=== PATIENT | female | born 1985 | race Two or more races ===

== ENCOUNTER 2016-06-13 23:04 | Emergency (ER) | payer SELFPAY ==
[~2016-06-13 23:04] MED LIST: IMPLANTED BIRTH CONT; IRON325 MG PO; LEVSINTAB PO; MOBIC7.5 PO; PAIN MED; PCET PO; ZOFRAN4 PO
[2016-06-14 01:08] LABS: BASOPHILS 1.1 %; BASOPHILS ABSOLUTE 0.05 10/3/uL (0.0-0.16); EOSINOPHILS 3.9 %; EOSINOPHILS ABSOLUTE 0.17 10/3/uL (0.0-0.53); HEMATOCRIT 27.5 % (36.0-48.0); HEMOGLOBIN 8.6 g/dL (12.0-16.0); LYMPHOCYTES 33.6 %; LYMPHOCYTES ABSOLUTE 1.48 10/3/uL (0.67-4.30); MEAN CORPUS HGB CONC 31.3 g/dL (32.0-36.0); MEAN CORPUSCULAR HEMOGLOB 22.8 pg (26.0-34.0); MEAN CORPUSCULAR VOLUME 72.8 fL (80-100); MEAN PLATELET VOLUME 8.9 fL (9.2-13.0); MONOCYTES 10.9 %; MONOCYTES ABSOLUTE 0.48 10/3/uL (0.21-1.20); NEUTROPHILS 50.5 %; NEUTROPHILS ABSOLUTE 2.22 10/3/uL (2.02-8.40); PLATELET COUNT 280 10/3/uL (150-400); RBC DISTRIBUTION WIDTH 16.7 % (12.0-16.0); RED CELL COUNT 3.78 10/6/uL (4.0-5.6)
[2016-06-14] MEDS ORDERED: PLAQ200B PO (01:08)
[2016-06-14 01:09] LABS: MANUAL DIFF NO %; WHITE BLOOD CELLS 4.4 10/3/uL (4.5-10.5)
[2016-06-14] MEDS ORDERED: CIP2 PO (01:09)
[2016-06-14] MEDS ORDERED: [UNRECOGNIZED DRUG - SUPPLY] (01:11)
[2016-06-14 01:21] LABS: BUN (BLOOD UREA NITROGEN) 12 MG/DL (6-23); CALCIUM, SERUM 7.3 MG/DL (8.5-10.4); CHLORIDE, SERUM 109 MMOL/L (96-112); CO2 (CARBON DIOXIDE) 25 MMOL/L (24-34); CREATININE 0.49 MG/DL (0.55-1.02); GFR AFRICAN AMERICAN 152 ML/MIN (>=60); GFR NON AFRICAN AMERICAN 131 ML/MIN (>=60); GLUCOSE, SERUM 75 MG/DL (60-99); POTASSIUM, SERUM 3.4 MMOL/L (3.5-5.3); SODIUM, SERUM 141 MMOL/L (135-148)
== END 2016-06-14 03:05 | disposition home or self-care (01) ==
LOC: ER 23:04
PROVIDERS: Hospitalist
DX: R51 Headache (principal); D64.9 Anemia, unspecified; Z79.899 Other long term (current) drug therapy
CPT/HCPCS: 70450; 80048; 84703; 85025; 96374; 96375; 96376; 99284; J1200; J1885; J2765

== ENCOUNTER 2016-06-20 23:00 | Inpatient (IN) | payer BC ==
--- NOTE | ~2016-06-20 | CN ---
Consultation Report [facility] [id number] [place]. [address] NAME: CELINE ROMEO : 87 STATUS : ADM IN PAT#: [id number] AGE: 31 ADM/REG DATE : 06/21/16 MR#: [id number] REPORT SERV DATE: 06/21/16 DICTATED BY: JAYCOB RUIZ DATE: 06/21/16 REPORT STATUS : Draft TRANSCRIBED BY: MODL DATE: 06/21/16 CONSULTATION REPORT DATE OF CONSULTATION: Dear Dr. Tellez: Thank you for requesting my opinion regarding evaluation and management of Ms. Celine Campbell' shortness of breath and right-sided pleurisy. Ms. Marcum is a 31-year-old Guyanese-speaking female with a history of systemic sclerosis, who presents with a history of worsening shortness of breath and right-sided chest pain. She denies any fevers, chills, night sweats, nausea, vomiting, diarrhea, or constipation. There are no significant travel exposures. CT scan of the chest demonstrated a right middle lobe pneumonia with no evidence of a PE. She did receive one dose of Lovenox as per written report in Dr. Andrae Neri's HPI. Currently, she states that she feels better, but still overall not well. As she is a limited historian due to her Guyanese speaking, I had difficulty with the yeast cake cutter as she was repeatedly requesting food tray to be sent up for her . REVIEW OF SYSTEMS: A 14-point review of systems was attempted, but could not be completed due to the language barrier and her constant focus on obtaining food for her . PAST MEDICAL HISTORY: 1. Systemic sclerosis. 2. Chronic anemia. PAST SURGICAL HISTORY: Appendectomy. FAMILY HISTORY: Noncontributory. ALLERGIES: NO KNOWN DRUG ALLERGIES. HOME MEDICATIONS: Reviewed and located in the paper chart. PHYSICAL EXAMINATION: VITAL SIGNS: Afebrile, T-current of 97, pulse of 66, respiratory rate of 18, on room air 100%, blood pressure 108/62. GENERAL: Pleasant, in no acute distress. Able to speak with a yeast cake cutter via phone and follow commands. HEENT: Normocephalic and atraumatic. Pupils are equal, round, and reactive to light and accommodation. Posterior oropharynx is clear. NECK: No JVD. No LAD. Trachea midline. CARDIOVASCULAR: Regular rate and rhythm. S1 and S2 present. LUNGS: Clear to auscultation bilaterally. Consultation Report [address] [place]. [address] NAME: CELINE ROMEO : 86 STATUS : ADM IN PAT#: [id number] AGE: 31 ADM/REG DATE : 06/21/16 MR#: [id number] REPORT SERV DATE: 06/21/16 DICTATED BY: JAYCOB RUIZ DATE: 06/21/16 REPORT STATUS : Draft TRANSCRIBED BY: ROSALINE DATE: 06/21/16 ABDOMEN: Nontender, nondistended, soft. Positive bowel sounds. EXTREMITIES: No clubbing, cyanosis, or edema. SKIN: No new rashes, lesions, or ulcers. PSYCHIATRIC: Alert and oriented x3. Appropriate mood and affect. Appropriate insight and judgment. NEUROLOGIC: 5/5 strength in upper and lower extremities. Cranial nerves were not tested. LABORATORY DATA: Normal white count, hemoglobin of 9, platelet count of 321, no significant left shift. Creatinine of 0.5. Procalcitonin is negative. IMAGING: A chest CTA performed on 06/21/2016 was personally reviewed by me and I agree with the following interpretation. No PE. Right middle lobe infiltrate. Axillary adenopathy noted. ASSESSMENT AND PLAN: Ms. Ceilne Marcum is a pleasant 31-year-old female with significant past medical history of rheumatoid arthritis, on Plaquenil, who presents to [facility] with right-sided pleurisy and shortness of breath. The patient's CT scan did not demonstrate a PE, however, confirmed the presence of community-acquired pneumonia in the right middle lobe and incidental finding including extensive axillary adenopathy with a question of potential lymphoma. A summary of my recommendations are as follows: 1. Continue antibiotic therapy for a total of seven days. The patient can be transitioned to oral therapy. 2. The patient is currently on room air oxygen p.r.n. 3. Bronchodilator therapy. 4. Consider a biopsy of the axillary lymph nodes or appropriate outpatient followup. Thank you for allowing me to participate in Ms. Marcum's care, please reconsult with questions or concerns. SAMANTHA/ROSALINE Jaycob Ruiz M.D. / [id number] CC: Sathya Cervantes MD
--- NOTE | ~2016-06-20 | CN ---
Consultation Report [facility] [address] [place]. [address] NAME: CHATO ROMEO : 87 STATUS : ADM IN [facility]#: [id number] AGE: 31 ADM/REG DATE : 06/21/16 MR#: [id number] REPORT SERV DATE: 06/24/16 DICTATED BY: HAIDER HICKS DATE: 06/23/16 REPORT STATUS : Draft TRANSCRIBED BY: MODL DATE: 06/23/16 DATE OF CONSULTATION: 06/23/2016 REASON FOR CONSULTATION: Lymphadenopathy. HISTORY: Ms Jossue Campbell is a 31-year-old lady admitted here on 06/21/2016 with right middle lobe pneumonia and some prominent right axillary lymph nodes seen on CT scan of the chest and some also mildly prominent right hilar lymph node in conjunction with pneumonia. There was no evidence of any pulmonary embolism. The patient did complain of some tenderness in the right underarm area and no breast issues with regard to pain in the breast or nipple discharge or any recent lumps. She was evaluated by Dr. Roldan, felt to have pneumonia and no need for any other intervention. She has a history of connective tissue disorder with rheumatoid arthritis/systemic sclerosis, followed by weaving instructor and treated with Plaquenil. She has a history of chronic anemia, and on this admission, has evidence of iron-deficiency anemia. She has had regular menstrual cycles and notes heavy blood loss at times. PAST MEDICAL HISTORY: Again, significant for rheumatoid arthritis/systemic sclerosis, rheumatological disorder, and chronic anemia. She had an appendectomy in April 2016 with acute appendicitis pathologically evident. She had a cholecystectomy in November 2015 with chronic cholecystitis evident and neither of those specimens revealed any evidence of tumor or malignancy. MEDICATIONS: Prior to admission included iron sulfate twice a day, hydrocodone p.r.n., Plaquenil 200 mg daily, Zofran p.r.n., prednisone tapering, ciprofloxacin. She has had a contraceptive implant placed. FAMILY HISTORY: Negative for blood disorders or cancer. SOCIAL HISTORY: She has four children. Denies any cigarette smoking, alcohol, or drug use. REVIEW OF SYSTEMS: As previously documented by other physicians. She does note mild pain in the right underarm area. PHYSICAL EXAMINATION: VITAL SIGNS: Afebrile with normal vital signs. GENERAL: She is a well-developed, well-nourished woman, in no acute distress. Alert and oriented x3. HEENT: With NCAT and sclerae anicteric. NECK: No JVD or adenopathy or thyromegaly. HEART: Regular rate and rhythm. LUNGS: Clear to auscultation. ABDOMEN: Scaphoid. Active bowel sounds. Soft and nontender. No palpable organomegaly or masses. Consultation Report [address] [place]. [address] NAME: CHATO ROMEO : 86 STATUS : ADM IN [facility]#: [id number] AGE: 31 ADM/REG DATE : 06/21/16 MR#: [id number] REPORT SERV DATE: 06/24/16 DICTATED BY: HAIDER HICKS DATE: 06/23/16 REPORT STATUS : Draft TRANSCRIBED BY: ROSALINE DATE: 06/23/16 EXTREMITIES: Without cyanosis, clubbing, or edema. Pulses intact distally. SKIN: Without jaundice, rash, petechiae, or purpura. LYMPHATICS: Lymph node survey without palpable adenopathy in the neck, supraclavicular, or axillary areas except for the right axilla with a right high axillary lymph node about 2 cm which is rubbery and slightly tender, not fixed, without palpable fluctuance or warmth. Inguinal areas without palpable adenopathy. BREASTS: No palpable lumps in the breast. NEUROLOGIC: Grossly intact. The patient lying in bed. LABORATORY: Reviewed. CT chest results reviewed. Echocardiogram results reviewed. IMPRESSION: Ms Jossue Campbell is a lady presenting with right middle lobe pneumonia and CT scan of the chest revealing some reactive type lymphadenopathy in the right hilar area as well as right axillary nodes. I suspect that this is benign reactive lymphadenopathy, but further evaluation with an ultrasound would be warranted. If there was suspicious architectural findings in the lymph nodes and a biopsy would be recommended with ultrasound guidance rather than CT guidance. If the lymph nodes appear reactive and benign then no further followup would be recommended on an oncology perspective, but just with her primary care physician and/or weaving instructor in about a month for followup of the lymph node exam. She does also have an iron-deficiency anemia, is on iron sulfate. I suspect this is related to her menstrual blood losses. No further workup will be planned and defer follow up to her primary care physician. She will continue to see me and just her weaving instructor and continue Plaquenil therapy as needed. I will plan to be available on a p.r.n. basis after discharge from the hospital. SANDRITA/ROSALINE Haider Hicks M.D. / [id number] CC: MD Fabby Hines MD
--- NOTE | ~2016-06-20 | HP ---
History And Physical [facility] [address] [place]. [address] NAME: CHATO ROMEO : 87 STATUS : ADM IN [facility]#: [id number] AGE: 31 ADM/REG DATE : 06/21/16 MR#: [id number] REPORT SERV DATE: 06/21/16 DICTATED BY: ANDRAE BELTRAN DATE: 06/21/16 REPORT STATUS : Draft TRANSCRIBED BY: MODL DATE: 06/21/16 DATE OF ADMISSION: 06/21/2016 CHIEF COMPLAINT: Right-sided chest pain. HISTORY OF PRESENT ILLNESS: This is a 31-year-old Tajik only speaking lady who has a history of systemic sclerosis in the past, presents to the emergency room at [facility] with the above-mentioned complaint. History is obtained, translated in the ER from the patient, and reviewing data available on the [employer] system. According to available data, it appears through the film coater that Mrs. Jossue Campbell started having right-sided chest pain about four days ago. Pain is pleuritic in nature, exacerbated with deep inspiration or coughing. She denied any hemoptysis associated with this. In the last two days or so, she has had some fevers and chills as well. She has had no recent travel exposures or contacts with any patients with tuberculosis. In the emergency room, initial workup revealed an interesting CT scan of her chest. In the right middle lobe just over the fissure, there is an abnormality which has a few air bronchograms through it but also could be an infarction. There are also filling defects in the right pulmonary artery as well. There are no pleural effusions seen. Hospitalist Service is asked to admit her for further evaluation and treatment. At the time of my evaluation, she had the above mentioned right-sided chest pain, but without any palpitations or orthopnea. She had no cough, hemoptysis, night sweats, or weight loss. She has had no recent falls or loss of consciousness. She did have fever and chills in the last two days. Denied any nausea, vomiting, diarrhea, hematemesis, hematochezia, or hematuria. No other history of recent travel or exposures. PAST MEDICAL HISTORY: Significant for history of systemic sclerosis and chronic anemia. She has also had an appendectomy. FAMILY HISTORY: Noncontributory. MEDICATIONS: Her medications at home were reviewed by me in the chart today. REVIEW OF SYSTEMS: As in history of present illness. All other systems were reviewed in detail and are quite unremarkable. PHYSICAL EXAMINATION: GENERAL: This is a pleasant 31-year-old, who speaks only Tajik. She appears to be in no acute distress at least at rest. She is alert, awake, oriented to time, place, and person. HEENT: Her head was atraumatic, normocephalic. Her pupils are equal, reacting to light and accommodating. External ocular muscles are intact. Membranes are moist and pink. Sclerae are nonicteric. NECK: Supple with no jugular venous distention, lymphadenopathy, or thyromegaly. History And Physical [address] [address] NAME: CHATO ROMEO : 87 STATUS : ADM IN [facility]#: [id number] AGE: 31 ADM/REG DATE : 06/21/16 MR#: [id number] REPORT SERV DATE: 06/21/16 DICTATED BY: ANDRAE BELTRAN DATE: 06/21/16 REPORT STATUS : Draft TRANSCRIBED BY: ROSALINE DATE: 06/21/16 LUNGS: Clear to auscultation with no wheezes, rubs, or crackles. There is a grade 3 ejection systolic murmur, otherwise, regular rhythm. ABDOMEN: Soft. There is slight tenderness in the right upper quadrant. No rebound or guarding. Bowel sounds are present. There is no organomegaly palpable. EXTREMITIES: No cyanosis, clubbing, or edema. NEUROLOGIC: Grossly intact. No focal sensory or motor deficits. Higher functions appeared intact. VITAL SIGNS: Today showed a temperature of 99.5, pulse 105, respirations 18 a minute, blood pressure was 111/66, and oxygen saturations were 99%, breathing 2 L of oxygen via nasal cannula. LABORATORY DATA: Reviewed on the [employer] system showed a sodium of 139, potassium 3.6, chloride 105, and CO2 of 25, BUN was 14 with a creatinine of 0.50 and blood glucose was 138. Her calcium was 8.1. Other liver numbers appeared within normal limits. CBC revealed a white blood cell count of 7300, hemoglobin was 9.7, hematocrit 29.9, and platelet count was 320,000. Sedimentation rate was elevated at 99 today. Influenza A and B were negative. Urinalysis was not performed today. Films on the CTA of the chest were reviewed by me on the PACS today, and per my interpretation, there is right middle lobe subsegmental infarction versus consolidation as I do see some air bronchograms. There are also small filling defects in the pulmonary artery seen in the right as well. IMPRESSION: 1. Pleuritic chest pain on the right side. 2. Right middle lobe infiltrate versus infarction. 3. Pulmonary embolism. 4. Anemia, which is chronic. 5. Systemic sclerosis. PLAN: We will admit the patient to the Hospitalist Service with telemetry for close monitoring. We will establish pain control at this time with intravenous Dilaudid. Continue bronchodilator treatments and supplemental oxygen therapy. We will obtain cultures, start her on empiric antibiotics at this time with ceftriaxone and azithromycin for community-acquired pneumonia. However, given her other clinical presentation, it could be a pulmonary infarction and pulmonary embolism, and so we will start her on a single therapeutic dose of Lovenox and wait for radiology read from our [facility] radiologist. She also has a history of systemic sclerosis with an ESR of 99 now. We will start her on oral prednisone as well. If radiology report in the morning requires, we may require a Pulmonary consultation to follow up as well. I have discussed the above plans with the patient via the film coater and she is agreeable to the above recommendations. If it is indeed infarction, patient may require to stay more than a couple of days. Hospitalist Service will be following her during her stay here. /ROSALINE History And Physical [address] [address] NAME: CHATO ROMEO : 87 STATUS : ADM IN PAT#: [id number] AGE: 31 ADM/REG DATE : 06/21/16 MR#: [id number] REPORT SERV DATE: 06/21/16 DICTATED BY: ANDRAE BELTRAN DATE: 06/21/16 REPORT STATUS : Draft TRANSCRIBED BY: ROSALINE DATE: 06/21/16 Andrae Beltran M.D. / [id number] CC: Aaron Vora M.D.
--- NOTE | ~2016-06-20 | DS ---
Discharge Summary [facility] [address] [place]. [address] NAME: CHATO ROMEO : 87 STATUS : DIS IN PAT#: [id number] AGE: 31 ADM/REG DATE : 06/21/16 MR#: [id number] REPORT SERV DATE: 06/27/16 DICTATED BY: MARKIE ROYAL DATE: 06/26/16 REPORT STATUS : Draft TRANSCRIBED BY: MODL DATE: 06/26/16 ADMISSION DATE: 06/21/2016 DISCHARGE DATE: 06/26/2016 DISCHARGE DIAGNOSES: 1. Right middle lobe pneumonia. 2. Pleuritic chest pain most likely related to the pneumonia. 3. History of rheumatoid arthritis and systemic sclerosis, also chronic anemia. 4. Lymphadenopathy in the left axilla which may be adenitis. CONSULTANTS DURING THIS HOSPITALIZATION: Dr. Jaycob Roldan, of Pulmonology, Dr. Haider Pandey, of Hematology-Oncology. INVASIVE PROCEDURES DONE DURING THIS HOSPITALIZATION: Left axillary lymph node biopsy by Interventional Radiology. BRIEF HISTORY OF PRESENT ILLNESS: The patient is a 31-year-old Kazakh-speaking female with prominent right axillary lymph node seen on CT scan of the chest and also complaining of some pain and some filling defect in the right pulmonary artery, so she was admitted. For detailed history and physical exam, please see note dictated by Dr. Andrae Neri. After being admitted to the hospital, this patient was thought to have pneumonia, and she was started on antibiotics. She has been on antibiotics in the outpatient setting. She was also on some oral prednisone in the outpatient setting. There was some concern whether she had a pulmonary embolism. This patient underwent a CT scan of the chest, it did not show PE by official Radiology read. However, it did show some lymphadenopathy in the axilla. Pulmonology saw the patient in consultation, recommended bronchodilators, continued with ceftriaxone and Zithromax. She has finished a full course of antibiotics at this time. She has chronic anemia that has been iron deficiency. Dr. Haider Pandey, saw the patient in consultation and recommended that we biopsied the left axillary lymph node. She underwent that and we are awaiting results of that. Dr. Pandey has recommended that she could follow up with primary care physician after her biopsy. She is use doing okay, she still having significant pleuritic chest pain. We have given her IV Solu-Medrol, we have given her IV Toradol that seemed to have helped temporarily. At this time, the infection seems not to be an issue. We will resume all other medications. We are awaiting this lymph node biopsy. We will put her on oral ibuprofen three times daily along with Prilosec, and she has been encouraged and told to follow up with her primary care physician for the results of the lymph node biopsy. Medically, otherwise she remained stable and is being discharged in stable condition. A 2-dimensional echocardiogram was also done during this hospitalization which showed no evidence of any valvular heart disease nor significant decline in her ejection fraction. DISCHARGE DISPOSITION: Home. DISCHARGE ACTIVITY: As tolerated. DISCHARGE DIET: Low-sodium diet. Discharge Summary [address] [address] NAME: CHATO ROMEO : 87 STATUS : DIS IN PAT#: [id number] AGE: 31 ADM/REG DATE : 06/21/16 MR#: [id number] REPORT SERV DATE: 06/27/16 DICTATED BY: MARKIE ROYAL DATE: 06/26/16 REPORT STATUS : Draft TRANSCRIBED BY: ROSALINE DATE: 06/26/16 DISCHARGE MEDICATIONS: Iron 325 mg p.o. twice daily, Plaquenil 200 mg b.i.d.; contraceptives, implanted control pills; hydrocodone 5/325 every six hours p.r.n. for pain #20 with no refills given, Zofran 8 mg p.o. twice daily p.r.n. for nausea, Prilosec 40 mg p.o. once daily #30, ibuprofen 400 mg p.o. t.i.d. with meals. DISCHARGE FOLLOWUP: With Dr. Vaughn Kang at the [facility]. More than 30 minutes spent planning this patient's discharge, reconciling medications, writing prescriptions, discussing hospital care through the snailer with the patient and documenting this discharge. YUE/ROSALINE Markie Royal M.D. / [id number] CC: Markie Royal M.D.
[~2016-06-20 23:00] MED LIST changes: +CIP2 PO; +PLAQ200B PO; +[UNRECOGNIZED DRUG - SUPPLY]
[2016-06-21 01:48] LABS: BASOPHILS 0.3 %; BASOPHILS ABSOLUTE 0.02 10/3/uL (0.0-0.16); EOSINOPHILS 0 %; HEMATOCRIT 29.9 % (36.0-48.0); HEMOGLOBIN 9.7 g/dL (12.0-16.0); IMMATURE GRANULOCYTES 0.1 %; IMMATURE GRANULOCYTES ABSOLUTE 0.01 10/3/uL (0.0-0.11); LYMPHOCYTES 18.3 %; LYMPHOCYTES ABSOLUTE 1.33 10/3/uL (0.67-4.30); MEAN CORPUS HGB CONC 32.4 g/dL (32.0-36.0); MEAN CORPUSCULAR HEMOGLOB 23.5 pg (26.0-34.0); MEAN CORPUSCULAR VOLUME 72.4 fL (80-100); MEAN PLATELET VOLUME 9.3 fL (9.2-13.0); MONOCYTES 8.2 %; NEUTROPHILS 73.1 %; NEUTROPHILS ABSOLUTE 5.32 10/3/uL (2.02-8.40); PLATELET COUNT 320 10/3/uL (150-400); RBC DISTRIBUTION WIDTH 17.1 % (12.0-16.0); RED CELL COUNT 4.13 10/6/uL (4.0-5.6)
[2016-06-21 01:54] LABS: ER CBC TAT 0 Hrs 11 Mins; MANUAL DIFF NO %; WHITE BLOOD CELLS 7.3 10/3/uL (4.5-10.5)
[2016-06-21 02:03] LABS: A/G RATIO 0.4 (0.7-1.9); ALBUMIN 2.8 G/DL (3.5-5.0); ALKALINE PHOSPHATASE 94 U/L (45-117); BUN (BLOOD UREA NITROGEN) 14 MG/DL (6-23); CALCIUM, SERUM 8.1 MG/DL (8.5-10.4); CHLORIDE, SERUM 105 MMOL/L (96-112); CO2 (CARBON DIOXIDE) 25 MMOL/L (24-34); GFR AFRICAN AMERICAN 151 ML/MIN (>=60); GFR NON AFRICAN AMERICAN 130 ML/MIN (>=60); POTASSIUM, SERUM 3.6 MMOL/L (3.5-5.3); SGOT(AST) 19 U/L (5-40); SGPT(ALT) 23 U/L (5-65); SODIUM, SERUM 139 MMOL/L (135-148); TOTAL BILIRUBIN 0.2 MG/DL (0-1.2)
[2016-06-21 02:06] LABS: ANISOCYTOSIS 1+ (5-10/OIF) (0-5/OIF); BAND NEUTROPHILS 1 %; ER DIFF TAT 0 Hrs 23 Mins; LYMPHOCYTES 11 %; MICROCYTES 1+ (5-10/OIF) (0-5/OIF); MONOCYTES 9 %; MONOCYTES ABSOLUTE (CALC) 0.66 10/3/uL (0.21-1.20); NEUTROPHILS ABSOLUTE (CALC) 5.84 10/3/uL (2.02-8.40); PLATELET ESTIMATE ADQ (ADEQUATE); SEGMENTED NEUTROPHIL (0) 79 %; TOTAL NUCLEATED CELLS 100
[2016-06-21 02:08] LABS: GLOBULIN 7.2 G/DL (2.5-4.1); GLUCOSE, SERUM 138 MG/DL (60-99)
[2016-06-21 02:27] LABS: INFLUENZA A SCREEN NEGATIVE (NEGATIVE); INFLUENZA B SCREEN NEGATIVE (NEGATIVE)
[2016-06-21 08:23] LABS: BASOPHILS 0.4 %; BASOPHILS ABSOLUTE 0.02 10/3/uL (0.0-0.16); EOSINOPHILS 0 %; HEMATOCRIT 30.2 % (36.0-48.0); HEMOGLOBIN 9.8 g/dL (12.0-16.0); IMMATURE GRANULOCYTES 0.2 %; IMMATURE GRANULOCYTES ABSOLUTE 0.01 10/3/uL (0.0-0.11); LYMPHOCYTES 15.1 %; MEAN CORPUS HGB CONC 32.5 g/dL (32.0-36.0); MEAN CORPUSCULAR HEMOGLOB 23.5 pg (26.0-34.0); MEAN CORPUSCULAR VOLUME 72.4 fL (80-100); MEAN PLATELET VOLUME 9.1 fL (9.2-13.0); MONOCYTES 1.7 %; MONOCYTES ABSOLUTE 0.09 10/3/uL (0.21-1.20); NEUTROPHILS 82.6 %; NEUTROPHILS ABSOLUTE 4.38 10/3/uL (2.02-8.40); PLATELET COUNT 321 10/3/uL (150-400); RBC DISTRIBUTION WIDTH 17.3 % (12.0-16.0); RED CELL COUNT 4.17 10/6/uL (4.0-5.6); WHITE BLOOD CELLS 5.3 10/3/uL (4.5-10.5)
[2016-06-21 08:27] LABS: MANUAL DIFF NO %
[2016-06-21 08:34] LABS: BUN (BLOOD UREA NITROGEN) 10 MG/DL (6-23); CHLORIDE, SERUM 108 MMOL/L (96-112); CO2 (CARBON DIOXIDE) 24 MMOL/L (24-34); GFR AFRICAN AMERICAN 151 ML/MIN (>=60); GFR NON AFRICAN AMERICAN 130 ML/MIN (>=60); GLUCOSE, SERUM 156 MG/DL (60-99); PHOSPHORUS, SERUM 2.7 MG/DL (2.5-4.5); POTASSIUM, SERUM 4.5 MMOL/L (3.5-5.3); SODIUM, SERUM 137 MMOL/L (135-148)
[2016-06-21] MEDS ORDERED: P10 PO (08:37)
[2016-06-21] MEDS ORDERED: FERROUS SULF325 M1 PO (08:38)
[2016-06-21] MEDS ORDERED: NORCO1 TA1 PO (08:39)
[2016-06-21] MEDS ORDERED: ZOFRAN4 PO (08:39)
[2016-06-21 11:11] LABS: T PROTEIN (ELECT)(NOT OR 9.7 G/DL (6.0-8.5)
[2016-06-21 11:34] LABS: % IRON SAT 6 % (20-50); FERRITIN 36 NG/ML (8-252); IRON BINDING CAPACITY 349 MCG/DL (225-410); IRON, SERUM 21 MCG/DL (35-150)
[2016-06-21 11:38] LABS: FOLATE 18.2 NG/ML (>5.2)
[2016-06-21 12:06] LABS: PROCALCITONIN <0.05 ng/mL (<0.5)
[2016-06-21 21:15] LABS: CPK 80 U/L (0-200); TROPONIN I <0.02 NG/ML (<0.05)
[2016-06-21 21:16] LABS: CK-MB 1.2 NG/ML
[2016-06-22 06:20] LABS: BASOPHILS 0.2 %; BASOPHILS ABSOLUTE 0.02 10/3/uL (0.0-0.16); EOSINOPHILS 0 %; HEMATOCRIT 29.6 % (36.0-48.0); HEMOGLOBIN 9.3 g/dL (12.0-16.0); IMMATURE GRANULOCYTES 0.1 %; IMMATURE GRANULOCYTES ABSOLUTE 0.01 10/3/uL (0.0-0.11); LYMPHOCYTES 14.3 %; LYMPHOCYTES ABSOLUTE 1.27 10/3/uL (0.67-4.30); MEAN CORPUS HGB CONC 31.4 g/dL (32.0-36.0); MEAN CORPUSCULAR HEMOGLOB 22.5 pg (26.0-34.0); MEAN CORPUSCULAR VOLUME 71.7 fL (80-100); MEAN PLATELET VOLUME 9.1 fL (9.2-13.0); MONOCYTES 6.5 %; MONOCYTES ABSOLUTE 0.58 10/3/uL (0.21-1.20); NEUTROPHILS 78.9 %; NEUTROPHILS ABSOLUTE 6.99 10/3/uL (2.02-8.40); PLATELET COUNT 334 10/3/uL (150-400); RBC DISTRIBUTION WIDTH 17.6 % (12.0-16.0); RED CELL COUNT 4.13 10/6/uL (4.0-5.6)
[2016-06-22 06:22] LABS: MANUAL DIFF NO %; WHITE BLOOD CELLS 8.9 10/3/uL (4.5-10.5)
[2016-06-22 06:37] LABS: A/G RATIO 0.3 (0.7-1.9); ALBUMIN 2.3 G/DL (3.5-5.0); CALCIUM, SERUM 8.1 MG/DL (8.5-10.4); CHLORIDE, SERUM 108 MMOL/L (96-112); CO2 (CARBON DIOXIDE) 23 MMOL/L (24-34); CREATININE 0.43 MG/DL (0.55-1.02); GFR AFRICAN AMERICAN 158 ML/MIN (>=60); GFR NON AFRICAN AMERICAN 136 ML/MIN (>=60); GLOBULIN 6.6 G/DL (2.5-4.1); GLUCOSE, SERUM 143 MG/DL (60-99); POTASSIUM, SERUM 4.1 MMOL/L (3.5-5.3); SGOT(AST) 17 U/L (5-40); SGPT(ALT) 20 U/L (5-65); SODIUM, SERUM 139 MMOL/L (135-148); TOTAL BILIRUBIN 0.1 MG/DL (0-1.2); TOTAL PROTEIN 8.9 G/DL (6.0-8.5)
[2016-06-22 06:39] LABS: ALKALINE PHOSPHATASE 79 U/L (45-117); BUN (BLOOD UREA NITROGEN) 14 MG/DL (6-23)
[2016-06-23 06:23] LABS: BASOPHILS 0.3 %; BASOPHILS ABSOLUTE 0.02 10/3/uL (0.0-0.16); EOSINOPHILS 0 %; HEMATOCRIT 31.3 % (36.0-48.0); HEMOGLOBIN 9.8 g/dL (12.0-16.0); IMMATURE GRANULOCYTES 0.1 %; IMMATURE GRANULOCYTES ABSOLUTE 0.01 10/3/uL (0.0-0.11); LYMPHOCYTES 35.3 %; LYMPHOCYTES ABSOLUTE 2.46 10/3/uL (0.67-4.30); MEAN CORPUS HGB CONC 31.3 g/dL (32.0-36.0); MEAN CORPUSCULAR HEMOGLOB 22.8 pg (26.0-34.0); MEAN PLATELET VOLUME 8.9 fL (9.2-13.0); MONOCYTES 9.9 %; MONOCYTES ABSOLUTE 0.69 10/3/uL (0.21-1.20); NEUTROPHILS 54.4 %; NEUTROPHILS ABSOLUTE 3.79 10/3/uL (2.02-8.40); PLATELET COUNT 354 10/3/uL (150-400); RBC DISTRIBUTION WIDTH 17.5 % (12.0-16.0); RED CELL COUNT 4.29 10/6/uL (4.0-5.6)
[2016-06-23 06:25] LABS: MANUAL DIFF NO %
[2016-06-23 06:31] LABS: A/G RATIO 0.4 (0.7-1.9); ALBUMIN 2.3 G/DL (3.5-5.0); ALKALINE PHOSPHATASE 78 U/L (45-117); BUN (BLOOD UREA NITROGEN) 12 MG/DL (6-23); CALCIUM, SERUM 8.2 MG/DL (8.5-10.4); CHLORIDE, SERUM 105 MMOL/L (96-112); CO2 (CARBON DIOXIDE) 23 MMOL/L (24-34); CREATININE 0.37 MG/DL (0.55-1.02); GFR AFRICAN AMERICAN 166 ML/MIN (>=60); GFR NON AFRICAN AMERICAN 143 ML/MIN (>=60); GLOBULIN 6.2 G/DL (2.5-4.1); SGOT(AST) 20 U/L (5-40); SGPT(ALT) 19 U/L (5-65); SODIUM, SERUM 138 MMOL/L (135-148); TOTAL BILIRUBIN 0.2 MG/DL (0-1.2); TOTAL PROTEIN 8.5 G/DL (6.0-8.5)
[2016-06-23 06:32] LABS: GLUCOSE, SERUM 93 MG/DL (60-99); PHOSPHORUS, SERUM 3.6 MG/DL (2.5-4.5); POTASSIUM, SERUM 3.2 MMOL/L (3.5-5.3)
[2016-06-23 09:57] LABS: A/G 0.48 RATIO (0.9-2.10); ALB RELATIVE % 32.5 % (60.0-89.0); ALBUMIN (ELECTRO) 3.15 GM/DL (3.2-5.5); ALPHA 1 (ELECTRO) 0.33 GM/DL (0.1-0.4); ALPHA 1 RELAT % (NOT ORD) 3.4 % (1.0-4.0); ALPHA 2 (ELECTRO) 1.19 GM/DL (0.5-1.10); ALPHA 2 RELAT % 12.3 % (4.5-26.0); BETA GLOBULIN (SPE) 0.95 GM/DL (0.60-1.30); BETA RELATIVE % 9.8 % (9.0-22.0); GAMMA GLOBULIN (SPE) 4.07 G/DL (0.70-1.60)
[2016-06-24 06:05] LABS: BASOPHILS 0.6 %; BASOPHILS ABSOLUTE 0.03 10/3/uL (0.0-0.16); EOSINOPHILS 1.6 %; EOSINOPHILS ABSOLUTE 0.08 10/3/uL (0.0-0.53); HEMATOCRIT 30.7 % (36.0-48.0); HEMOGLOBIN 9.7 g/dL (12.0-16.0); IMMATURE GRANULOCYTES 0.2 %; IMMATURE GRANULOCYTES ABSOLUTE 0.01 10/3/uL (0.0-0.11); LYMPHOCYTES 40.4 %; LYMPHOCYTES ABSOLUTE 2.05 10/3/uL (0.67-4.30); MEAN CORPUS HGB CONC 31.6 g/dL (32.0-36.0); MEAN CORPUSCULAR VOLUME 72.7 fL (80-100); MEAN PLATELET VOLUME 9.4 fL (9.2-13.0); MONOCYTES 10.2 %; MONOCYTES ABSOLUTE 0.52 10/3/uL (0.21-1.20); NEUTROPHILS ABSOLUTE 2.39 10/3/uL (2.02-8.40); PLATELET COUNT 330 10/3/uL (150-400); RBC DISTRIBUTION WIDTH 17.2 % (12.0-16.0); RED CELL COUNT 4.22 10/6/uL (4.0-5.6); WHITE BLOOD CELLS 5.1 10/3/uL (4.5-10.5)
[2016-06-24 06:08] LABS: MANUAL DIFF NO %
[2016-06-24 06:17] LABS: A/G RATIO 0.4 (0.7-1.9); ALBUMIN 2.2 G/DL (3.5-5.0); ALKALINE PHOSPHATASE 80 U/L (45-117); BUN (BLOOD UREA NITROGEN) 14 MG/DL (6-23); CALCIUM, SERUM 7.6 MG/DL (8.5-10.4); CHLORIDE, SERUM 108 MMOL/L (96-112); CO2 (CARBON DIOXIDE) 23 MMOL/L (24-34); CREATININE 0.38 MG/DL (0.55-1.02); GFR AFRICAN AMERICAN 165 ML/MIN (>=60); GFR NON AFRICAN AMERICAN 142 ML/MIN (>=60); GLOBULIN 5.4 G/DL (2.5-4.1); GLUCOSE, SERUM 84 MG/DL (60-99); POTASSIUM, SERUM 3.6 MMOL/L (3.5-5.3); SGOT(AST) 21 U/L (5-40); SGPT(ALT) 23 U/L (5-65); SODIUM, SERUM 141 MMOL/L (135-148); TOTAL BILIRUBIN 0.2 MG/DL (0-1.2); TOTAL PROTEIN 7.6 G/DL (6.0-8.5)
[2016-06-25 05:31] LABS: BASOPHILS 0 %; EOSINOPHILS 0 %; HEMATOCRIT 31.5 % (36.0-48.0); HEMOGLOBIN 10.1 g/dL (12.0-16.0); IMMATURE GRANULOCYTES 0.2 %; IMMATURE GRANULOCYTES ABSOLUTE 0.01 10/3/uL (0.0-0.11); LYMPHOCYTES 27.7 %; LYMPHOCYTES ABSOLUTE 1.15 10/3/uL (0.67-4.30); MEAN CORPUS HGB CONC 32.1 g/dL (32.0-36.0); MEAN CORPUSCULAR HEMOGLOB 23.1 pg (26.0-34.0); MEAN CORPUSCULAR VOLUME 72.1 fL (80-100); MEAN PLATELET VOLUME 8.9 fL (9.2-13.0); MONOCYTES 1.9 %; MONOCYTES ABSOLUTE 0.08 10/3/uL (0.21-1.20); NEUTROPHILS 70.2 %; NEUTROPHILS ABSOLUTE 2.91 10/3/uL (2.02-8.40); PLATELET COUNT 280 10/3/uL (150-400); RBC DISTRIBUTION WIDTH 17.1 % (12.0-16.0); RED CELL COUNT 4.37 10/6/uL (4.0-5.6); WHITE BLOOD CELLS 4.2 10/3/uL (4.5-10.5)
[2016-06-25 05:32] LABS: MANUAL DIFF NO %
[2016-06-25 05:41] LABS: ALBUMIN 2.4 G/DL (3.5-5.0); BUN (BLOOD UREA NITROGEN) 11 MG/DL (6-23); CALCIUM, SERUM 8.2 MG/DL (8.5-10.4); CHLORIDE, SERUM 105 MMOL/L (96-112); CO2 (CARBON DIOXIDE) 25 MMOL/L (24-34); CREATININE 0.42 MG/DL (0.55-1.02); GFR AFRICAN AMERICAN 159 ML/MIN (>=60); GFR NON AFRICAN AMERICAN 138 ML/MIN (>=60); PHOSPHORUS, SERUM 3.3 MG/DL (2.5-4.5); POTASSIUM, SERUM 4.1 MMOL/L (3.5-5.3); SODIUM, SERUM 138 MMOL/L (135-148)
[2016-06-25 05:47] LABS: GLUCOSE, SERUM 133 MG/DL (60-99)
[2016-06-26 06:31] LABS: BASOPHILS 0.4 %; BASOPHILS ABSOLUTE 0.02 10/3/uL (0.0-0.16); EOSINOPHILS 3.4 %; EOSINOPHILS ABSOLUTE 0.19 10/3/uL (0.0-0.53); HEMATOCRIT 28.6 % (36.0-48.0); HEMOGLOBIN 8.9 g/dL (12.0-16.0); IMMATURE GRANULOCYTES 0.4 %; IMMATURE GRANULOCYTES ABSOLUTE 0.02 10/3/uL (0.0-0.11); LYMPHOCYTES 41.4 %; LYMPHOCYTES ABSOLUTE 2.33 10/3/uL (0.67-4.30); MEAN CORPUS HGB CONC 31.1 g/dL (32.0-36.0); MEAN CORPUSCULAR HEMOGLOB 22.6 pg (26.0-34.0); MEAN CORPUSCULAR VOLUME 72.8 fL (80-100); MEAN PLATELET VOLUME 8.9 fL (9.2-13.0); MONOCYTES 9.1 %; MONOCYTES ABSOLUTE 0.51 10/3/uL (0.21-1.20); NEUTROPHILS 45.3 %; NEUTROPHILS ABSOLUTE 2.56 10/3/uL (2.02-8.40); PLATELET COUNT 286 10/3/uL (150-400); RBC DISTRIBUTION WIDTH 17.4 % (12.0-16.0); RED CELL COUNT 3.93 10/6/uL (4.0-5.6); WHITE BLOOD CELLS 5.6 10/3/uL (4.5-10.5)
[2016-06-26 06:37] LABS: MANUAL DIFF NO %
[2016-06-26 06:45] LABS: ALBUMIN 2.2 G/DL (3.5-5.0); BUN (BLOOD UREA NITROGEN) 18 MG/DL (6-23); CALCIUM, SERUM 7.5 MG/DL (8.5-10.4); CHLORIDE, SERUM 108 MMOL/L (96-112); CO2 (CARBON DIOXIDE) 22 MMOL/L (24-34); CREATININE 0.35 MG/DL (0.55-1.02); GFR AFRICAN AMERICAN 169 ML/MIN (>=60); GFR NON AFRICAN AMERICAN 146 ML/MIN (>=60); GLUCOSE, SERUM 117 MG/DL (60-99); PHOSPHORUS, SERUM 2.8 MG/DL (2.5-4.5); POTASSIUM, SERUM 3.5 MMOL/L (3.5-5.3); SODIUM, SERUM 141 MMOL/L (135-148)
[2016-06-26] MEDS ORDERED: PRILOSEC40 MG PO (16:21)
[2016-06-26] MEDS ORDERED: IBU400 PO (16:25)
== END 2016-06-26 19:29 | disposition home or self-care (01) | DRG 989 ==
LOC: ER 23:00 → 6NO 06-21 04:13
PROVIDERS: Emergency Medicine; Hospitalist; Internal Medicine; Internal Medicine Pulmonary Disease
PROC: 07B63ZX Excision of Left Axillary Lymphatic, Percutaneous Approach, Diagnostic (ICD-10-PCS; principal; 2016-06-25)
DX: J18.9 Pneumonia, unspecified organism (principal); M34.9 Systemic sclerosis, unspecified; M06.9 Rheumatoid arthritis, unspecified; D50.9 Iron deficiency anemia, unspecified; D63.8 Anemia in other chronic diseases classified elsewhere; R59.1 Generalized enlarged lymph nodes; R07.1 Chest pain on breathing; Z90.49 Acquired absence of other specified parts of digestive tract; Z80.3 Family history of malignant neoplasm of breast
CPT/HCPCS: 71010; 71020; 71275; 76642; 76882; 80048; 80053; 80069; 81001; 82550; 82553; 82607; 82728; 82746; 83540; 83550; 83605; 83735; 84100; 84145; 84155; 84165; 84484; 85025; 85652; 87040; 87449; 87804; 88305; 93005; 93306; 96374; 96375; 99285; A9270-GY; G0204; J0456; J1170; J1885; J1956; J2930; Q9967

== ENCOUNTER 2016-07-20 18:06 | Emergency (ER) | payer SELFPAY ==
[2016-07-20 17:37] LABS: BASOPHILS 0.7 %; BASOPHILS ABSOLUTE 0.03 10/3/uL (0.0-0.16); EOSINOPHILS 2.1 %; EOSINOPHILS ABSOLUTE 0.09 10/3/uL (0.0-0.53); ER CBC TAT 0 Hrs 05 Mins; HEMATOCRIT 30.8 % (36.0-48.0); HEMOGLOBIN 9.7 g/dL (12.0-16.0); LYMPHOCYTES 46.9 %; LYMPHOCYTES ABSOLUTE 1.98 10/3/uL (0.67-4.30); MANUAL DIFF NO %; MEAN CORPUS HGB CONC 31.5 g/dL (32.0-36.0); MEAN CORPUSCULAR VOLUME 73.2 fL (80-100); MEAN PLATELET VOLUME 8.9 fL (9.2-13.0); MONOCYTES 10.2 %; MONOCYTES ABSOLUTE 0.43 10/3/uL (0.21-1.20); NEUTROPHILS 40.1 %; NEUTROPHILS ABSOLUTE 1.69 10/3/uL (2.02-8.40); PLATELET COUNT 315 10/3/uL (150-400); RBC DISTRIBUTION WIDTH 17.7 % (12.0-16.0); RED CELL COUNT 4.21 10/6/uL (4.0-5.6); WHITE BLOOD CELLS 4.2 10/3/uL (4.5-10.5)
[2016-07-20 17:42] LABS: ASCORBIC ACID (UR NOT ORDER) NEG (NEG); BILIRUBIN, URINE NEGATIVE (NEG); ER URINALYSIS TAT 0 Hrs 10 Mins; KETONE, URINE NEGATIVE (NEG); LEUKOCYTE ESTERASE(NOT OR NEG (NEG); NITRITE (URINE) NEG (NEG); WBC (NOT ORDERED) (RFLEX) 4 (0-5)
[2016-07-20 17:51] LABS: A/G RATIO 0.5 (0.7-1.9); ALBUMIN 2.8 G/DL (3.5-5.0); ALKALINE PHOSPHATASE 106 U/L (45-117); BUN (BLOOD UREA NITROGEN) 15 MG/DL (6-23); CHLORIDE, SERUM 105 MMOL/L (96-112); CO2 (CARBON DIOXIDE) 28 MMOL/L (24-34); CREATININE 0.44 MG/DL (0.55-1.02); GFR AFRICAN AMERICAN 157 ML/MIN (>=60); GFR NON AFRICAN AMERICAN 135 ML/MIN (>=60); GLOBULIN 5.7 G/DL (2.5-4.1); GLUCOSE, SERUM 77 MG/DL (60-99); SGOT(AST) 30 U/L (5-40); SGPT(ALT) 31 U/L (5-65); SODIUM, SERUM 141 MMOL/L (135-148); TOTAL BILIRUBIN 0.1 MG/DL (0-1.2); TOTAL PROTEIN 8.5 G/DL (6.0-8.5)
[~2016-07-20 18:06] MED LIST changes: +FERROUS SULF325 M1 PO; +IBU400 PO; +NORCO1 TA1 PO; +P10 PO; +PRILOSEC40 MG PO
== END 2016-07-20 19:30 | disposition home or self-care (01) ==
LOC: ER 18:06
PROVIDERS: Physician Assistant
DX: R19.7 Diarrhea, unspecified (principal); E87.6 Hypokalemia; D64.9 Anemia, unspecified
CPT/HCPCS: 80053; 81001; 83690; 84703; 85025; 93005; 96372; 99285; A9270-GY; J1885

== ENCOUNTER 2016-08-07 09:31 | Observation (INO) | payer OTHER ==
[2016-08-07] MEDS ORDERED: IMU PO (10:00)
[2016-08-07 10:14] LABS: BASOPHILS 1.2 %; BASOPHILS ABSOLUTE 0.06 10/3/uL (0.0-0.16); EOSINOPHILS 1.4 %; EOSINOPHILS ABSOLUTE 0.07 10/3/uL (0.0-0.53); HEMATOCRIT 30.9 % (36.0-48.0); HEMOGLOBIN 9.7 g/dL (12.0-16.0); LYMPHOCYTES 42.3 %; LYMPHOCYTES ABSOLUTE 2.13 10/3/uL (0.67-4.30); MEAN CORPUS HGB CONC 31.4 g/dL (32.0-36.0); MEAN CORPUSCULAR HEMOGLOB 22.4 pg (26.0-34.0); MEAN CORPUSCULAR VOLUME 71.2 fL (80-100); MEAN PLATELET VOLUME 8.7 fL (9.2-13.0); MONOCYTES 10.5 %; MONOCYTES ABSOLUTE 0.53 10/3/uL (0.21-1.20); NEUTROPHILS 44.6 %; NEUTROPHILS ABSOLUTE 2.25 10/3/uL (2.02-8.40); PLATELET COUNT 277 10/3/uL (150-400); RBC DISTRIBUTION WIDTH 17.3 % (12.0-16.0); RED CELL COUNT 4.34 10/6/uL (4.0-5.6)
[2016-08-07 10:17] LABS: MANUAL DIFF NO %
[2016-08-07 10:22] LABS: INTERNATIONAL NORMAL RATI 1.1 UNITS (-); PARTIAL THROMBO TIME 31.1 SEC (22.5-37.2); PROTIME (NOT ORD) 14.1 SEC (12.0-14.5)
[2016-08-07 12:32] LABS: BUN (BLOOD UREA NITROGEN) 16 MG/DL (6-23); CALCIUM, SERUM 8.3 MG/DL (8.5-10.4); CHLORIDE, SERUM 109 MMOL/L (96-112); CO2 (CARBON DIOXIDE) 23 MMOL/L (24-34); CREATININE 0.46 MG/DL (0.55-1.02); GFR AFRICAN AMERICAN 155 ML/MIN (>=60); GFR NON AFRICAN AMERICAN 133 ML/MIN (>=60); GLUCOSE, SERUM 68 MG/DL (60-99); POTASSIUM, SERUM 3.8 MMOL/L (3.5-5.3); SODIUM, SERUM 142 MMOL/L (135-148)
[2016-08-08 04:15] LABS: BASOPHILS 0.8 %; BASOPHILS ABSOLUTE 0.03 10/3/uL (0.0-0.16); EOSINOPHILS 2.4 %; EOSINOPHILS ABSOLUTE 0.09 10/3/uL (0.0-0.53); HEMATOCRIT 28.1 % (36.0-48.0); HEMOGLOBIN 8.9 g/dL (12.0-16.0); IMMATURE GRANULOCYTES 0.3 %; IMMATURE GRANULOCYTES ABSOLUTE 0.01 10/3/uL (0.0-0.11); LYMPHOCYTES 55.5 %; LYMPHOCYTES ABSOLUTE 2.06 10/3/uL (0.67-4.30); MEAN CORPUS HGB CONC 31.7 g/dL (32.0-36.0); MEAN CORPUSCULAR HEMOGLOB 22.7 pg (26.0-34.0); MEAN CORPUSCULAR VOLUME 71.7 fL (80-100); MEAN PLATELET VOLUME 9.1 fL (9.2-13.0); MONOCYTES 8.4 %; MONOCYTES ABSOLUTE 0.31 10/3/uL (0.21-1.20); NEUTROPHILS 32.6 %; NEUTROPHILS ABSOLUTE 1.21 10/3/uL (2.02-8.40); PLATELET COUNT 258 10/3/uL (150-400); RBC DISTRIBUTION WIDTH 17.5 % (12.0-16.0); RED CELL COUNT 3.92 10/6/uL (4.0-5.6); WHITE BLOOD CELLS 3.7 10/3/uL (4.5-10.5)
[2016-08-08 04:20] LABS: ALBUMIN 2.5 G/DL (3.5-5.0); CALCIUM, SERUM 7.9 MG/DL (8.5-10.4); CHLORIDE, SERUM 110 MMOL/L (96-112); CO2 (CARBON DIOXIDE) 22 MMOL/L (24-34); CREATININE 0.59 MG/DL (0.55-1.02); GFR AFRICAN AMERICAN 143 ML/MIN (>=60); GFR NON AFRICAN AMERICAN 123 ML/MIN (>=60); PHOSPHORUS, SERUM 3.4 MG/DL (2.5-4.5); POTASSIUM, SERUM 3.8 MMOL/L (3.5-5.3); SODIUM, SERUM 140 MMOL/L (135-148)
[2016-08-08 04:22] LABS: BUN (BLOOD UREA NITROGEN) 21 MG/DL (6-23); GLUCOSE, SERUM 95 MG/DL (60-99); MANUAL DIFF NO %
== END 2016-08-08 12:02 | disposition home or self-care (01) ==
LOC: IMGHOLD 09:31 → RADHOLD 09:38 → SSU1 16:37
PROVIDERS: Internal Medicine Nephrology
PROC: BT22ZZZ Computerized Tomography (CT Scan) of Left Kidney (ICD-10-PCS; principal; 2016-08-07)
DX: N18.9 Chronic kidney disease, unspecified (principal); M32.9 Systemic lupus erythematosus, unspecified; Z79.899 Other long term (current) drug therapy
CPT/HCPCS: 50200; 77012; 80048; 80069; 84703; 85025; 85610; 85730; 88305; 96374; 96375; 96376; A9270-GY; G0378; J1170; J2250; J2405; J3010; J7500

== ENCOUNTER 2016-08-08 23:00 | Emergency (ER) | payer OTHER ==
[~2016-08-08 23:00] MED LIST changes: +IMU PO
[2016-08-09 02:46] LABS: ASCORBIC ACID (UR NOT ORDER) NEG (NEG); BILIRUBIN, URINE NEGATIVE (NEG); ER URINALYSIS TAT 0 Hrs 00 Mins; KETONE, URINE NEGATIVE (NEG); LEUKOCYTE ESTERASE(NOT OR NEG (NEG); NITRITE (URINE) NEG (NEG); WBC (NOT ORDERED) (RFLEX) 3 (0-5)
[2016-08-09 02:47] LABS: BASOPHILS 0.7 %; BASOPHILS ABSOLUTE 0.03 10/3/uL (0.0-0.16); EOSINOPHILS 2.5 %; EOSINOPHILS ABSOLUTE 0.11 10/3/uL (0.0-0.53); ER CBC TAT 0 Hrs 00 Mins; HEMATOCRIT 30.4 % (36.0-48.0); HEMOGLOBIN 9.6 g/dL (12.0-16.0); IMMATURE GRANULOCYTES 0.2 %; IMMATURE GRANULOCYTES ABSOLUTE 0.01 10/3/uL (0.0-0.11); LYMPHOCYTES 44.4 %; LYMPHOCYTES ABSOLUTE 1.95 10/3/uL (0.67-4.30); MEAN CORPUS HGB CONC 31.6 g/dL (32.0-36.0); MEAN CORPUSCULAR HEMOGLOB 22.6 pg (26.0-34.0); MEAN CORPUSCULAR VOLUME 71.5 fL (80-100); MEAN PLATELET VOLUME 8.7 fL (9.2-13.0); MONOCYTES 10.3 %; MONOCYTES ABSOLUTE 0.45 10/3/uL (0.21-1.20); NEUTROPHILS 41.9 %; NEUTROPHILS ABSOLUTE 1.84 10/3/uL (2.02-8.40); PLATELET COUNT 268 10/3/uL (150-400); RBC DISTRIBUTION WIDTH 17.3 % (12.0-16.0); RED CELL COUNT 4.25 10/6/uL (4.0-5.6); WHITE BLOOD CELLS 4.4 10/3/uL (4.5-10.5)
[2016-08-09 02:48] LABS: MANUAL DIFF NO %
[2016-08-09 03:03] LABS: A/G RATIO 0.5 (0.7-1.9); ALBUMIN 2.7 G/DL (3.5-5.0); CALCIUM, SERUM 8.1 MG/DL (8.5-10.4); CHLORIDE, SERUM 110 MMOL/L (96-112); CO2 (CARBON DIOXIDE) 25 MMOL/L (24-34); CREATININE 0.63 MG/DL (0.55-1.02); GFR AFRICAN AMERICAN 140 ML/MIN (>=60); GFR NON AFRICAN AMERICAN 120 ML/MIN (>=60); GLUCOSE, SERUM 85 MG/DL (60-99); POTASSIUM, SERUM 3.6 MMOL/L (3.5-5.3); SGOT(AST) 53 U/L (5-40); SGPT(ALT) 73 U/L (5-65); SODIUM, SERUM 142 MMOL/L (135-148); TOTAL BILIRUBIN 0.1 MG/DL (0-1.2); TOTAL PROTEIN 8.7 G/DL (6.0-8.5)
[2016-08-09 03:04] LABS: ALKALINE PHOSPHATASE 87 U/L (45-117); BUN (BLOOD UREA NITROGEN) 10 MG/DL (6-23)
[2016-08-09 03:19] LABS: EOSINOPHILS 1 %; EOSINOPHILS ABSOLUTE (CALC) 0.04 10/3/uL (0.0-0.53); ER DIFF TAT 0 Hrs 31 Mins; LYMPHOCYTES 43 %; LYMPHOCYTES ABSOLUTE (CALC) 1.63 10/3/uL (0.67-4.30); MONOCYTES 8 %; MONOCYTES ABSOLUTE (CALC) 0.35 10/3/uL (0.21-1.20); NEUTROPHILS ABSOLUTE (CALC) 2.38 10/3/uL (2.02-8.40); SEGMENTED NEUTROPHIL (0) 48 %; TOTAL NUCLEATED CELLS 100
[2016-08-09 03:20] LABS: ANISOCYTOSIS 1+ (5-10/OIF) (0-5/OIF); MICROCYTES 1+ (5-10/OIF) (0-5/OIF); PLATELET ESTIMATE ADQ (ADEQUATE); RBC MORPHOLOGY ABN (NORMAL)
== END 2016-08-09 04:36 | disposition home or self-care (01) ==
LOC: ER 23:00
PROVIDERS: Specialist
DX: R10.30 Lower abdominal pain, unspecified (principal); D64.9 Anemia, unspecified; Z88.8 Allergy status to other drugs, medicaments and biological substances; Z79.899 Other long term (current) drug therapy; Z87.01 Personal history of pneumonia (recurrent)
CPT/HCPCS: 74176; 80053; 81001; 83690; 85025; 93005; 99284

== ENCOUNTER 2016-08-27 16:39 | Emergency (ER) | payer OTHER ==
[2016-08-27 17:06] LABS: BASOPHILS 0.8 %; BASOPHILS ABSOLUTE 0.03 10/3/uL (0.0-0.16); EOSINOPHILS 1.8 %; EOSINOPHILS ABSOLUTE 0.07 10/3/uL (0.0-0.53); HEMATOCRIT 29.3 % (36.0-48.0); HEMOGLOBIN 9.1 g/dL (12.0-16.0); LYMPHOCYTES 40.3 %; LYMPHOCYTES ABSOLUTE 1.53 10/3/uL (0.67-4.30); MEAN CORPUS HGB CONC 31.1 g/dL (32.0-36.0); MEAN CORPUSCULAR HEMOGLOB 21.9 pg (26.0-34.0); MEAN CORPUSCULAR VOLUME 70.6 fL (80-100); MEAN PLATELET VOLUME 8.9 fL (9.2-13.0); MONOCYTES 10.5 %; NEUTROPHILS 46.6 %; NEUTROPHILS ABSOLUTE 1.77 10/3/uL (2.02-8.40); PLATELET COUNT 317 10/3/uL (150-400); RBC DISTRIBUTION WIDTH 17.6 % (12.0-16.0); RED CELL COUNT 4.15 10/6/uL (4.0-5.6); WHITE BLOOD CELLS 3.8 10/3/uL (4.5-10.5)
[2016-08-27 17:07] LABS: MANUAL DIFF NO %
[2016-08-27 17:13] LABS: INTERNATIONAL NORMAL RATI 1.2 UNITS (-); PROTIME (NOT ORD) 14.7 SEC (12.0-14.5)
[2016-08-27 17:22] LABS: BUN (BLOOD UREA NITROGEN) 14 MG/DL (6-23); CALCIUM, SERUM 7.9 MG/DL (8.5-10.4); CHEST PAIN PROFILE TAT 0 Hrs 20 Mins; CHLORIDE, SERUM 109 MMOL/L (96-112); CO2 (CARBON DIOXIDE) 25 MMOL/L (24-34); CREATININE 0.58 MG/DL (0.55-1.02); GFR AFRICAN AMERICAN 143 ML/MIN (>=60); GFR NON AFRICAN AMERICAN 124 ML/MIN (>=60); GLUCOSE, SERUM 83 MG/DL (60-99); POTASSIUM, SERUM 3.2 MMOL/L (3.5-5.3); SODIUM, SERUM 143 MMOL/L (135-148); TROPONIN I <0.02 NG/ML (<0.05)
[2016-08-27 20:29] LABS: D-DIMER QUANTITATIVE 1.26 ug/mLFEU (< 0.50)
== END 2016-08-28 00:01 | disposition home or self-care (01) ==
LOC: ER 16:39
PROVIDERS: Emergency Medicine
DX: I82.612 Acute embolism and thrombosis of superficial veins of left upper extremity (principal); D64.9 Anemia, unspecified; E87.6 Hypokalemia; Z87.01 Personal history of pneumonia (recurrent)
CPT/HCPCS: 71020; 71275; 80048; 83735; 84484; 85025; 85379; 85610; 85730; 93005; 93971; 99285; A9270-GY; Q9967

== ENCOUNTER 2016-09-10 10:40 | Inpatient (IN) | payer BC ==
--- NOTE | ~2016-09-10 | CN ---
Consultation Report [facility] [address] [place]. [address] NAME: CHATO ROMEO : 87 STATUS : ADM Nava PAT#: [id number] AGE: 31 ADM/REG DATE : 09/10/16 MR#: [id number] REPORT SERV DATE: 09/11/16 DICTATED BY: NELDA HICKS DATE: 09/11/16 REPORT STATUS : Draft TRANSCRIBED BY: MODAkilah DATE: 09/11/16 NEUROLOGY CONSULTATION DATE OF CONSULTATION: 09/11/2016 REASON FOR CONSULTATION: Persistent headache. HOSPITALIST: Quyen Vance M.D. SEWER TAPPER: Dylan Javier MD HISTORY OF PRESENT ILLNESS: The patient is a 31-year-old female, who does not speak Korean. She needs an administrative assistant front desk who happens to be her 9-year-old daughter. According to the patient/administrative assistant front desk, she came to the emergency department with complaints of chest pain that started on 09/09/2014. Along with her chest pain, she had associated shortness of breath, palpitations, and diaphoresis. After discussing her chest pain, she happened to mention that she has had a persistent ongoing severe headache that started three months ago. This headache was primarily in the occipital region. She stated it felt like a mass in the back of her head. She denied any photophobia, phonophobia, but did state that she had constant ongoing nausea without vomiting. This headache came on gradually and has not gone away. She denied any aggravating or alleviating factors. On a Likert scale of 0 to 10, she rated her pain a 9. She has taken some vjpq-def-umbmnhj medicines, but has not had any relief. She denied taking iprx-von-ndxoojr medicine on a daily basis. She denies any visual changes, any speech abnormalities, any weakness, numbness, or imbalance. The patient denies any fever, chills, rigors, or diaphoresis. PAST MEDICAL HISTORY: Systemic sclerosis, rheumatoid arthritis, questionable diagnosis of lupus, anemia of chronic disease, history of pneumonia, history of pleurisy, and GERD. PAST SURGICAL HISTORY: Appendectomy and cholecystectomy. HOME MEDICATION LIST: Includes Imuran 50 mg daily, Plaquenil 200 mg daily, Prilosec 20 mg daily, Ultram 50 mg every 12 hours p.r.n. pain, and Depo-Provera 1 dose IM every three months. ALLERGIES: NONE. SOCIAL HISTORY: The patient is . She has four children. She is Korean speaking. She does not work. She does not smoke, drink alcohol, or use illicits. FAMILY HISTORY: Her mother is healthy, father is healthy, unable to elicit any more of the family history. REVIEW OF SYSTEMS: Consultation Report [address] [place]. [address] NAME: CHATO ROMEO : 87 STATUS : ADM Nava PAT#: [id number] AGE: 31 ADM/REG DATE : 09/10/16 MR#: [id number] REPORT SERV DATE: 09/11/16 DICTATED BY: NELDA HICKS DATE: 09/11/16 REPORT STATUS : Draft TRANSCRIBED BY: ROSALINE DATE: 09/11/16 Please refer to HPI for pertinent positives. PHYSICAL EXAMINATION: GENERAL: The patient is a 31-year-old female, who stands 4 feet and 11 inches and weighs approximately 100 pounds. VITAL SIGNS: She is afebrile, heart rate 90, respiratory rate 14, O2 saturations on room air 99%, and blood pressure 99/64. NEUROLOGIC: The patient is alert. She is oriented x4. Able to communicate with the patient through gesturing and interpretation with her daughter. Speech is clear. Language is fluent. Pupils are 4 mm. PERRLA. Cranial nerves are intact. Funduscopic exam, positive red reflex bilaterally. Normal disc cup ratio. No nicking, hemorrhaging, or papillary edema. Vision via confrontation is full in both rivas. She can move all extremities x4. Dktxja-lq-iowd and tmoy-jv-qpvy, no ataxia. No pronator drift. Upper extremity strength is 5/5. No tremor. Upper DTRs are 1+ bilaterally. No reported sensory deficits. Lower extremities, strength is 5/5. Lower DTRs 1+ bilaterally. Downgoing toes. No reported sensory deficits. NECK: No carotid bruits, JVD, or thyromegaly. CHEST: Lung sounds clear. No cough. CARDIAC: Regular rate and rhythm. LABORATORY DATA: CBC is normal. BMP normal. Cholesterol values are fairly normal. Sedimentation rate elevated at 95. C-reactive protein is elevated at 18.2. MRI of the brain, no acute changes. MRA of the head and neck, minimal narrowing in the right M3 region, otherwise no stenosis. ASSESSMENT/PLAN: 1. Persistent headache, etiology unknown. Differential diagnosis could be possible vasculitis with the patient's history and/or rebound headaches with daily use of Ultram. At this point, the patient will undergo a CTA of the head to rule out vasculitis. She will have an LP under fluoro to rule out any infectious process. We may consider placing her on steroids since her inflammatory markers are elevated and she does have autoimmune disease. In the meantime, she will be placed on an IV Depakote cocktail. 2. Chest pain. Per Cardiology, chest pain will be managed per Cardiology. 3. Systemic sclerosis. 4. Rheumatoid arthritis. Thank you again for including us in consultation. We will continue to follow with you. JOSEFA/ROSALINE Nelda Fregoso Consultation Report [address] [address] NAME: CHATO ROMEO : 87 STATUS : ADM Nava PAT#: [id number] AGE: 31 ADM/REG DATE : 09/10/16 MR#: [id number] REPORT SERV DATE: 09/11/16 DICTATED BY: NELDA HICKS DATE: 09/11/16 REPORT STATUS : Draft TRANSCRIBED BY: ROSALINE DATE: 09/11/16 [facility]ICI Hicks, [facility] / [id number] CC: Quyen Vance M.D. [facility] Dylan Javier MD
--- NOTE | ~2016-09-10 | DS ---
Discharge Summary [address] [place]. [address] NAME: CHATO ROMEO : 87 STATUS : DIS IN PAT#: [id number] AGE: 31 ADM/REG DATE : 09/10/16 MR#: [id number] REPORT SERV DATE: 09/20/16 DICTATED BY: KEITH STALLWORTH DATE: 09/20/16 REPORT STATUS : Draft TRANSCRIBED BY: MODL DATE: 09/20/16 ADMISSION DATE: 09/10/2016 DISCHARGE DATE: 09/20/2016 DISCHARGE DIAGNOSES: 1. Chronic pain, chronic headache, chronic chest pain, and chronic abdominal pain. 2. Systemic lupus erythematosus. 3. Primary pulmonary hypertension related to systemic lupus erythematosus. 4. Rheumatoid arthritis. 5. Iron-deficiency anemia. HOSPITAL COURSE: This is a 31-year-old lady with history of lupus and anemia of chronic disease who was initially admitted to the hospital with chest pain and EKG changes. For details, please refer to excellent H and P dictated by Dr. Villareal. Also, this is just an addendum to interim discharge summary that was dictated by Becki Ahumada, nurse practitioner, yesterday. In summary, the patient had quite extensive workup with involvement of multispecialties including Cardiology, Neurology, and Pulmonology for the patient's complaints of chronic pain. All of the patient's workups has been negative thus far and the patient has remained quite stable. I actually assumed care of this patient for the first time today, and as previously planned, the patient is now being discharged to home with close outpatient followup plans. For the rest of the details, again please refer to interim discharge summary dictated by Becki Ahumada. DISPOSITION: Home. FOLLOWUP: Please follow up with PCP as already scheduled. A total of 30 minutes spent in coordinating this patient's discharge today. DICTATED BY: MD NADEGE Renteria/ROSALINE Keith Stallworth MD / [id number] CC: Keith Stallworth MD
--- NOTE | ~2016-09-10 | IDS ---
Interim Discharge Summary [facility] [address] [place]. [address] NAME: CHATO ROMEO : 87 STATUS : DIS IN PAT#: [id number] AGE: 31 ADM/REG DATE : 09/10/16 MR#: [id number] REPORT SERV DATE: 09/22/16 DICTATED BY: Rama WEBSTER DATE: 09/19/16 REPORT STATUS : Draft TRANSCRIBED BY: MODL DATE: 09/19/16 ADMISSION DATE: 09/10/2016 DISCHARGE DATE: CURRENT INTERIM DIAGNOSES: 1. Headache, chronic. 2. Chest pain, persistent and chronic. 3. Nausea and vomiting. 4. Abdominal pain, chronic. 5. Primary pulmonary hypertension. 6. Lupus. 7. Rheumatoid arthritis. 8. Iron deficiency anemia. 9. Depression, likely with no formal diagnosis. 10.Decreased oral intake secondary to pain. HISTORY OF PRESENT ILLNESS: Please refer to admission H and P by Dr. Villareal. Please note, there is no interim summary. Briefly, Ms. Jossue Campbell is a 31-year-old Armenian-speaking patient with a known past medical history of lupus who presented to the emergency room with complaints of chest pain and headache. She reports that the headache started three months ago and the chest pain started the day prior to her admission. She did report associated symptoms of shortness of breath, palpitations, and diaphoresis along with nausea. She reports that the chest pain was worse with walking and eating. In the emergency room, her initial troponin and subsequent troponins were negative. She had some T-wave inversion in the anterior leads on her EKG. Hospitalist Service was asked to admit the patient. HOSPITAL COURSE: She was admitted to a telemetry bed with the initial diagnosis of chest pain. Cardiology was consulted for her chest pain with EKG changes and Neurology was consulted for her headaches. She was seen in consultation by Dr. Javier, who ordered an echocardiogram initially. Her echocardiogram showed left ventricular systolic function 63%, LV diastolic function intact, RV systolic function intact. No significant valvular dysfunction and a new small pericardial effusion of unknown significance when compared to the echo from June of this year. On 09/11/2016, she underwent a right and left heart cath, which showed angiographically normal coronaries with finding suggestive of primary pulmonary hypertension with moderate elevation of the mean PA pressure, recommended a Pulmonary Service consult. Neurology saw the patient and recommended an LP for her headaches. She had a CTA of the head, neck, and chest. CTA of the chest showed no pulmonary emboli with main pulmonary artery slightly larger than 3 cm, which correlates with pulmonary arterial hypertension. CTA of the neck revealed normal carotids, vertebral and subclavians unremarkable. Intracranial portion of the head includes intact carotid siphons and CTA of the alturas of Ramos structure. CTA of the brain with and without contrast showed no acute finding demonstrated on CTA of the brain. Left posterior fossa arachnoid cyst similar in size in appearance to previous CT brain. On 09/16/2016, I ordered a CT of the abdomen and pelvis for persistent abdominal pain, which revealed findings suggest anemia, prior Interim Discharge Summary [address] [place]. [address] NAME: CHATO ROMEO : 87 STATUS : DIS IN PAT#: [id number] AGE: 31 ADM/REG DATE : 09/10/16 MR#: [id number] REPORT SERV DATE: 09/22/16 DICTATED BY: Rama WEBSTER DATE: 09/19/16 REPORT STATUS : Draft TRANSCRIBED BY: ROSALINE DATE: 09/19/16 cholecystectomy, prior right lower quadrant surgery probably for appendix, aorta is midline, nonaneurysmal, no calcifications, and there is no evidence of GI or obstruction. Neurology again performed an LP to rule out an infectious process and followed the patient up until today actually, yesterday changing her medications once again for her chronic headache. She did receive high-dose steroids for five days with little improvement in her headache. Over the course of her hospitalization, they were giving her IV Depakote and IV Toradol. She completed high-dose IV steroid course and Topamax dose was adjusted and increased and subsequently discontinued yesterday. I initially saw the patient on 09/15/2016. Noting her cath report results from 09/11/2016 suggesting primary pulmonary hypertension and recommending a Pulmonary consult, I did in fact consult Pulmonary on this date. She was still receiving high-dose steroids and medications from Neuro for her headache. There is an apple packing header phone at the bedside, which I used for my daily conversations with the patient. Throughout the week, she continued to have a persistent headache complaining of an 8/10. She was seen in consultation by Dr. Connelly who documented the patient's need for tadalafil and ambrisentan. The patient is currently in the process of attempting to obtain Medicare as she is uninsured at this point. She received her last dose of high IV steroids on 09/16/2016. She complained of diarrhea on this date. Stool studies for C. diff and O and P were negative. Neurology noted that the patient's headache was relieved somewhat with some IV Toradol, however, short-lived. Dr. Connelly placed the patient on nifedipine 30 mg p.o. daily and signed off and recommended that the patient followup with him in two months in clinic. On 09/17/2016, her diarrhea had resolved. CT of abdomen and pelvis was negative for anything acute. She was not eating or drinking well on this date, which continued up to the current date. However, on 09/18/2016, I attempted to discharge the patient home as there were no new symptoms, but she started to have some nausea and vomiting on this date. We did check a straight cath urinalysis, which was negative. Neurology signed off, stopped her Topamax, and started her on Pamelor at night. On 09/19/2016, I spent a minimum of 30 minutes on the phone with the apple packing header at the patient's bedside explaining to her that her current symptoms were related to her lupus and her pulmonary hypertension; however, she is not eating or drinking much at all in this date and stated that when she eats that she would have chest pain, abdominal pain, ear pain, and headache. Shortly after I left the room today, she started to have some vomiting. We had no lab work today secondary to attempts to discharge her home. I did start her on some IV fluids today, D5 and a half at 75 and rearranged her medications once again discontinuing her Pamelor at night and starting Remeron 15 mg p.o. at bedtime. I did discontinue her Percocet as this may be the cause of her nausea and vomiting as she took it on an empty stomach today for her headache and chest pain. Looking back at her discharge medications in June of this year, I placed her on some hydrocodone and scheduled ibuprofen. We are going to continue her current dose of nifedipine with plans for followup outpatient with Dr. Connelly in two months. She does see a staple fiber washer, that is Dr. Mendes, and if she leaves over the weekend, followup with Dr. Mendes will have to be arranged. She does have an appointment some time in the near future with Dr. Mendes, however, this is not clear as to the dates specifically. She does have a followup appointment with primary care provider scheduled for 09/30/2016 at [facility] in [place]. So, presently, she is receiving IV fluids and a new medication regimen for headache as well as starting Remeron tonight. Disposition is currently pending. All other specialists have signed off her case. DICTATED BY: Becki Ahumada, [facility] Interim Discharge Summary [address] [address] NAME: CHATO ROMEO : 87 STATUS : DIS IN PAT#: [id number] AGE: 31 ADM/REG DATE : 09/10/16 MR#: [id number] REPORT SERV DATE: 09/22/16 DICTATED BY: Rama WEBSTER DATE: 09/19/16 REPORT STATUS : Draft TRANSCRIBED BY: ROSALINE DATE: 09/19/16 ROBIN/ROSALINE Rama Webster M.D. / [id number] CC: Rama Webster M.D.
--- NOTE | ~2016-09-10 | CN ---
Consultation Report [address] [facility] [place]. [address] NAME: CHATO ROMEO : 87 STATUS : ADM IN [facility]#: [id number] AGE: 31 ADM/REG DATE : 09/10/16 MR#: [id number] REPORT SERV DATE: 09/15/16 DICTATED BY: EVELINA CONNELLY DATE: 09/15/16 REPORT STATUS : Draft TRANSCRIBED BY: MODL DATE: 09/15/16 PULMONARY CONSULTATION DATE OF CONSULTATION: 09/15/2016 REASON FOR CONSULTATION: Concern for pulmonary hypertension. APPLICATION ANALYST: Provided by floor with a licensed hydrate thickener operator who has went through the classes, who is Egyptian-speaking along with Divehi-speaking. CHIEF COMPLAINT: Worsening shortness of breath. HISTORY OF PRESENT ILLNESS: Mrs. Karen Campbell is a 31-year-old female with a past medical history of getting diagnosed recently with lupus. However, the patient notes that she has been having lupus like symptoms with joint swelling and pain along with fatigue over the last year. Her shortness of breath began around 8 months ago and has become progressive. It is now almost at rest. When she obtained her CT scan on 09/10/2016, there was noted to be a large pulmonary artery. She underwent an echocardiogram which showed pulmonary hypertension with a mean pulmonary hypertension of around 35, concerning for primary pulmonary arterial hypertension in this patient with underlying lupus. She is on azathioprine along with another lupus medication. The patient is also noted to have a mild pericardial effusion. PAST MEDICAL HISTORY: Systemic lupus, anemia, chronic disease. HOME MEDICATIONS: Azathioprine, Plaquenil, Prilosec, Ultram, and Depo-Provera. ALLERGIES: NO KNOWN DRUG ALLERGIES. FAMILY HISTORY: No positive family history. SOCIAL HISTORY: The patient has no use of alcohol, tobacco, or illicit drug use. She is Egyptian-speaking only. REVIEW OF SYSTEMS: Attempted review of systems limited due to language. Otherwise, no further positive review of systems. PHYSICAL EXAMINATION: VITAL SIGNS: Temperature afebrile, heart rate 60s, respiratory rate 18, oxygen saturation 99% on room air, blood pressure currently 106 to 116. GENERAL: The patient is alert and oriented, no acute distress. HEENT: No JVD is noted. PULMONARY: Lungs are clear to auscultation with no wheezing. Consultation Report [place] [place] [address] [place]. [address] NAME: CHATO ROMEO : 87 STATUS : ADM IN PAT#: [id number] AGE: 31 ADM/REG DATE : 09/10/16 MR#: [id number] REPORT SERV DATE: 09/15/16 DICTATED BY: EVELINA CONNELLY DATE: 09/15/16 REPORT STATUS : Draft TRANSCRIBED BY: MODL DATE: 09/15/16 CARDIAC: Regular rate, no murmurs. ABDOMEN: Soft, nontender, nondistended with positive bowel sounds. EXTREMITIES: No cyanosis, no lower extremity edema. Peripheral pulses noted in all extremity. NEUROLOGIC: No focal neurological deficits. LABORATORY EXAMINATION: Good kidney function. IMAGING DATA: Reviewed CT scan along with echocardiogram which shows what seems to be a pulmonary arterial hypertension picture. ASSESSMENT AND PLAN: Mrs. Jossue Campbell is a 31-year-old female with a past medical history of underlying lupus who presents to the Pulmonary Consult Service with most definitely pulmonary hypertension. This is most likely related to her connective tissue disease. She currently does not have any drug coverage or any insurance which is going to complicate her treatment plans significantly. Our recommendations are below: 1. Pulmonary hypertension, most likely, pulmonary arterial hypertension from lupus: The patient would need at this moment in time if we are going to go forward with treatment using advanced pulmonary hypertension medications. She would need a good insurance coverage as the treatment plan would require tadalafil and ambrisentan. I have engaged in social work to help in this regard. She can most definitely see me in clinic for further evaluation of her pulmonary hypertension. We will obtain a pre-treatment 6 minute walk test. Again at this moment in time, we will need to have help in obtaining insurance coverage and/or other ability to pay for the two medications named above. Thank you much for this consultation. We will continue to follow along with you, please call us with any further questions or concerns. HFQ/ROSALINE Evelina Connelly MD / [id number] CC: Rama Ruiz M.D.
--- NOTE | ~2016-09-10 | HP ---
History And Physical [address] [address] NAME: CHATO ROMEO : 87 STATUS : ADM Nava PAT#: [id number] AGE: 31 ADM/REG DATE : 09/10/16 MR#: [id number] REPORT SERV DATE: 09/11/16 DICTATED BY: LINDSEY GLASS DATE: 09/10/16 REPORT STATUS : Draft TRANSCRIBED BY: ROSALINE DATE: 09/10/16 DATE OF ADMISSION: 09/10/2016 CHIEF COMPLAINT: Chest pain, headaches. HISTORY OF PRESENT ILLNESS: A 31-year-old woman, Kyrgyz-speaking, with past medical history of lupus who comes into the ED complaining of chest pain and headache. The patient reports that headache started three months ago, localized to the occipital and temporal area, nothing has helped. It feels like she has a mass in the back of her head. Reports the chest pain started the day prior to admission in the afternoon. Associated with shortness of breath, palpitations, diaphoresis. The patient reports the chest pain is worse with walking and eating. Reports associated nausea. Denies any fever, chills, cough, hemoptysis, melena, hematochezia, orthopnea, lower extremity swelling, slurred speech, localized weakness. Reports sometimes some generalized weakness. The patient was evaluated in the emergency room. Initial troponin negative. Has some T-wave inversion in anterior leads. Hospitalist consulted for further inpatient management. ALLERGIES: NO KNOWN DRUG ALLERGIES. HOME MEDICATIONS: Include, 1. Imuran 50 mg p.o. daily. 2. Plaquenil 200 mg p.o. in the morning. 3. Prilosec 20 mg p.o. daily. 4. Ultram 50 mg p.o. q.12 hours p.r.n. 5. Depo-Provera injection. PAST MEDICAL HISTORY: 1. SLE. 2. Anemia of chronic disease. FAMILY HISTORY: Denies any diseases. Mother and father are healthy. SOCIAL HISTORY: Denies any alcohol, tobacco, or illicit drug use. REVIEW OF SYSTEMS: 12-point system reviewed, otherwise negative per HPI. PHYSICAL EXAMINATION: VITAL SIGNS: Temperature 98, heart rate 87, blood pressure 111/74, respiratory rate 24, O2 saturation 100 on room air. GENERAL: In no acute distress. HEENT: EOMI. PERRLA. Nonicteric sclera. Nonerythematous pharynx. NECK: Supple. No JVD. No lymphadenopathy. RESPIRATORY: Clear to auscultation bilaterally. No wheezes, rhonchi, or crackles. CARDIOVASCULAR: Regular rate and rhythm. No murmurs, rubs, or gallops. ABDOMEN: Bowel sounds positive. Soft, nontender, nondistended. No rebound or guarding. History And Physical [address] [address] NAME: CHATO ROMEO : 87 STATUS : ADM Nava PAT#: [id number] AGE: 31 ADM/REG DATE : 09/10/16 MR#: [id number] REPORT SERV DATE: 09/11/16 DICTATED BY: LINDSEY GLASS DATE: 09/10/16 REPORT STATUS : Draft TRANSCRIBED BY: ROSALINE DATE: 09/10/16 EXTREMITIES: No edema, cyanosis. NEUROLOGIC: Alert and oriented x3. Cranial nerves II through XII intact. Strength 5/5 throughout. Cerebellar intact. Pronator negative. LABORATORY DATA: WBC of 6.5, hemoglobin 9, hematocrit 28.7, platelets 206. INR 1.2. Sodium 139, potassium 3.4, chloride 106, bicarb 28, BUN 13, creatinine 0.39, magnesium 1.9. Troponin less than 0.02. IMAGIN. Chest x-ray. Impression: Possible early infiltrate, right lung base. 2. CTA of the chest. Impression:. a. No pulmonary emboli. b. Main pulmonary artery is slightly larger than 3 cm, correlates with pulmonary artery hypertension. 3. EKG: T-wave inversion, V2 and V3. ASSESSMENT: 1. Chest pain. 2. T-wave inversion in anterior leads. 3. Systemic lupus erythematosus. 4. Anemia, microcytic, chronic. 5. Hypokalemia/hypomagnesemia. 6. Headache. PLAN: The patient will be admitted to Observation Telemetry. Cycle cardiac enzymes. Cycle EKGs. Consult Cardiology. Concern for some type of vasculitis with history of SLE. Check MRI and MRA of the head. Consult Neurology for headaches and start aspirin, statin, LISSETH inhibitor, and nitro p.r.n., morphine, oxygen. Restart home medications. Labs in the morning. Defer anticoagulation to Cardiology. Further evaluation and management per clinical course. DVT prophylaxis, SCDs. GI prophylaxis, PPI. CODE STATUS: Full code. Total time for history and physical 35 minutes. RLV/MODL Pato Villareal MD / [id number] CC: Quyen Vance M.D.
--- NOTE | ~2016-09-10 | CN ---
Consultation Report [facility] [address] [place]. [address] NAME: CHATO ROMEO : 87 STATUS : ADM Nava PAT#: [id number] AGE: 31 ADM/REG DATE : 09/10/16 MR#: [id number] REPORT SERV DATE: 09/11/16 DICTATED BY: CLAUDIA JAVIER DATE: 09/10/16 REPORT STATUS : Draft TRANSCRIBED BY: MODL DATE: 09/10/16 CARDIOLOGY CONSULTATION DATE OF CONSULTATION: 09/10/2016 REASON FOR CONSULTATION: Chest pain. HISTORY OF PRESENT ILLNESS: Ms. Marcum is a 31-year-old Kazakh-speaking only woman. The patient apparently has a history of systemic sclerosis, though history is very difficult; the patient is Kazakh speaking only and translation is obtained through her relatively young daughter. The patient reports that she presented with new-onset chest pain today. However, the patient was admitted with right-sided chest pain on 06/21/2016. Today, the patient describes a dull aching pain in her chest, which radiates to her neck and shoulders. The patient also reports severe headache. The patient reports the chest pain she is experiencing today is new, and unrelated to previous symptoms. The patient also reports associated dyspnea. She reports that the chest pain is exacerbated with exertion. Previous notes indicate the patient carries a diagnosis of scleroderma. The patient denies a clear history of orthopnea or paroxysmal nocturnal dyspnea. She has no known previous history of pulmonary hypertension. PAST MEDICAL HISTORY: 1. Possible scleroderma. 2. Chronic anemia. PAST SURGICAL HISTORY: Significant for laparoscopic appendectomy. FAMILY HISTORY: Negative for early coronary heart disease or sudden cardiac . SOCIAL HISTORY: The patient apparently has no known history of tobacco, alcohol, or drug use. Again, she is Kazakh speaking only. REVIEW OF SYSTEMS: A complete review of systems could not be obtained due to language barrier. The patient denies any obvious fevers, weight gain, or weight loss, however. HOME MEDICATIONS: 1. Azathioprine 50 mg p.o. daily. 2. Hydroxychloroquine 200 mg p.o. q.a.m. 3. Omeprazole 20 mg p.o. q.a.m. 4. Tramadol 50 mg p.o. q.12 hours as needed for pain. 5. Depo-Provera injections. Consultation Report [facility] [address] [place]. [address] NAME: CHATO ROMEO : 87 STATUS : ADM Nava PAT#: [id number] AGE: 31 ADM/REG DATE : 09/10/16 MR#: [id number] REPORT SERV DATE: 09/11/16 DICTATED BY: CLAUDIA JAVIER DATE: 09/10/16 REPORT STATUS : Draft TRANSCRIBED BY: MODAkilah DATE: 09/10/16 PHYSICAL EXAMINATION: VITAL SIGNS: Temperature is 98.6 degrees Fahrenheit, blood pressure is 95/61 mmHg, respirations 14, oxygen saturation is 100% on a 2 L nasal cannula, heart rate is 92 beats per minute and regular. CONSTITUTIONAL: The patient is a well-nourished, well-developed woman in no acute distress, though she does appear somewhat fatigued. EYES: PERRL, EOMI, clear conjunctiva. HEAD/MNT: NCAT with moist mucous membranes and grossly normal hard and soft palate. NECK: Supple with no obvious thyromegaly or lymphadenopathy CARDIOVASCULAR: There is a regular rhythm with a normal S1 and a physiologically split second heart sound. No significant murmurs, rubs, or gallops are noted. The jugular venous pressure appears normal. PULMONARY: Clear to auscultation bilaterally with no wheezing, rales, rhonchi noted, or dullness to percussion. ABDOMINAL: Soft, non-tender, non-distended with no hepatosplenomegaly noted. EXTREMITIES: No clubbing, cyanosis or edema. MUSCULOSKELETAL: Grossly normal strength and range of motion in all extremities INTEGUMENTARY: Skin appears intact with no bruises, wounds or active lesions noted. NEURO/PSYCH: Alert and oriented x3, with no dysarthria, facial droop or lateralizing weakness noted. LABORATORY DATA AND IMAGING: A 12-LEAD EKG: The patient's 12-lead EKG shows normal sinus rhythm with a rate of 85 beats per minute. There is symmetrical T-wave inversion in the precordial lead suggestive of anterior ischemia. No previous EKG is available for comparison at this time. CHEST X-RAY: An infiltrate in the right lung base cannot be excluded. The x-ray is otherwise unremarkable except for under inflated lungs. Cell count show a white blood cell count of 6.5, hemoglobin 9.0, hematocrit 29, platelets 206. INR is 1.2. Chemistry profile shows a sodium of 139, potassium 3.4, chloride is 106, CO2 of 28, BUN 13, creatinine 0.39, calcium is 8.0, magnesium 1.9. Troponin is less than 0.02. A beta HCG is negative. CT scan of the chest is negative for pulmonary embolism. There is slight enlargement of the main pulmonary artery, which may suggest underlying pulmonary hypertension. A small pericardial effusion is noted. There is no evidence of pneumonia or consolidation. ASSESSMENT AND PLAN: Chest pain. The patient apparently has had a previous workup for chest pain including a stress echocardiogram performed quite recently, which was negative for myocardial ischemia. Given the patient's youth and female gender, coronary heart disease is unlikely, though other conditions such as a congenital coronary anomaly or pulmonary hypertension are possible. I would recommend a transthoracic echocardiogram be repeated with Doppler studies to evaluate the patient's pulmonary pressures, as these were not estimated on the patient's recent stress echocardiogram. The patient also apparently has a pericardial effusion, and we will evaluate for any hemodynamic significance or enlargement. Consultation Report [address] [address] NAME: CHATO ROMEO : 87 STATUS : ADM Nava PAT#: [id number] AGE: 31 ADM/REG DATE : 09/10/16 MR#: [id number] REPORT SERV DATE: 09/11/16 DICTATED BY: CLAUDIA JAVIER DATE: 09/10/16 REPORT STATUS : Draft TRANSCRIBED BY: MODL DATE: 09/10/16 If there is evidence of right-sided chamber enlargement, right ventricular dysfunction, or pulmonary hypertension, we will consider right and left heart catheterization. Thank you for allowing me to participate in the care of Ms. Marcum. The Cardiology Service will continue to follow the patient closely during this hospitalization. [facility] Claudia Javier MD / [id number] CC: Quyen Vance M.D.
[2016-09-10 10:25] LABS: BASOPHILS 0.5 %; BASOPHILS ABSOLUTE 0.03 10/3/uL (0.0-0.16); EOSINOPHILS 0.3 %; EOSINOPHILS ABSOLUTE 0.02 10/3/uL (0.0-0.53); HEMATOCRIT 28.7 % (36.0-48.0); IMMATURE GRANULOCYTES 0.2 %; IMMATURE GRANULOCYTES ABSOLUTE 0.01 10/3/uL (0.0-0.11); LYMPHOCYTES 21.5 %; LYMPHOCYTES ABSOLUTE 1.39 10/3/uL (0.67-4.30); MEAN CORPUS HGB CONC 31.4 g/dL (32.0-36.0); MEAN CORPUSCULAR HEMOGLOB 22.3 pg (26.0-34.0); MEAN PLATELET VOLUME 8.7 fL (9.2-13.0); MONOCYTES 7.7 %; NEUTROPHILS 69.8 %; NEUTROPHILS ABSOLUTE 4.51 10/3/uL (2.02-8.40); RBC DISTRIBUTION WIDTH 17.1 % (12.0-16.0); RED CELL COUNT 4.04 10/6/uL (4.0-5.6)
[2016-09-10 10:26] LABS: MANUAL DIFF NO %; PLATELET COUNT 206 10/3/uL (150-400); WHITE BLOOD CELLS 6.5 10/3/uL (4.5-10.5)
[2016-09-10 10:32] LABS: INTERNATIONAL NORMAL RATI 1.2 UNITS (-); PARTIAL THROMBO TIME 31.6 SEC (22.5-37.2); PROTIME (NOT ORD) 14.6 SEC (12.0-14.5)
[2016-09-10 10:42] LABS: BUN (BLOOD UREA NITROGEN) 13 MG/DL (6-23); CHEST PAIN PROFILE TAT 0 Hrs 20 Mins; CHLORIDE, SERUM 106 MMOL/L (96-112); CO2 (CARBON DIOXIDE) 28 MMOL/L (24-34); CREATININE 0.39 MG/DL (0.55-1.02); GFR AFRICAN AMERICAN 163 ML/MIN (>=60); GFR NON AFRICAN AMERICAN 141 ML/MIN (>=60); GLUCOSE, SERUM 77 MG/DL (60-99); POTASSIUM, SERUM 3.4 MMOL/L (3.5-5.3); SODIUM, SERUM 139 MMOL/L (135-148); TROPONIN I <0.02 NG/ML (<0.05)
[2016-09-10] MEDS ORDERED: PRILO PO (12:42)
[2016-09-10] MEDS ORDERED: PLAQ200B PO (12:42)
[2016-09-10] MEDS ORDERED: IMU PO (12:42)
[2016-09-10] MEDS ORDERED: ULTRAM50 PO (12:42)
[2016-09-10] MEDS ORDERED: [UNRECOGNIZED DRUG - OTHER] IM (12:43)
[2016-09-11 05:38] LABS: BASOPHILS 0.2 %; BASOPHILS ABSOLUTE 0.01 10/3/uL (0.0-0.16); EOSINOPHILS 1.8 %; EOSINOPHILS ABSOLUTE 0.08 10/3/uL (0.0-0.53); HEMATOCRIT 29.9 % (36.0-48.0); HEMOGLOBIN 9.3 g/dL (12.0-16.0); IMMATURE GRANULOCYTES 0.2 %; IMMATURE GRANULOCYTES ABSOLUTE 0.01 10/3/uL (0.0-0.11); LYMPHOCYTES 32.6 %; LYMPHOCYTES ABSOLUTE 1.45 10/3/uL (0.67-4.30); MEAN CORPUS HGB CONC 31.1 g/dL (32.0-36.0); MEAN CORPUSCULAR HEMOGLOB 22.1 pg (26.0-34.0); MEAN PLATELET VOLUME 8.9 fL (9.2-13.0); MONOCYTES 6.5 %; MONOCYTES ABSOLUTE 0.29 10/3/uL (0.21-1.20); NEUTROPHILS 58.7 %; NEUTROPHILS ABSOLUTE 2.61 10/3/uL (2.02-8.40); PLATELET COUNT 230 10/3/uL (150-400); RBC DISTRIBUTION WIDTH 17.2 % (12.0-16.0); RED CELL COUNT 4.21 10/6/uL (4.0-5.6); WHITE BLOOD CELLS 4.5 10/3/uL (4.5-10.5)
[2016-09-11 05:39] LABS: MANUAL DIFF NO %
[2016-09-11 05:53] LABS: BUN (BLOOD UREA NITROGEN) 9 MG/DL (6-23); C-REACTIVE PROTEIN 18.2 MG/L (<8.0); CALCIUM, SERUM 8.5 MG/DL (8.5-10.4); CHLORIDE, SERUM 107 MMOL/L (96-112); CHOLESTEROL 113 MG/DL (< 200); CO2 (CARBON DIOXIDE) 27 MMOL/L (24-34); CREATININE 0.43 MG/DL (0.55-1.02); FERRITIN 12 NG/ML (8-252); GFR AFRICAN AMERICAN 158 ML/MIN (>=60); GFR NON AFRICAN AMERICAN 136 ML/MIN (>=60); HDL CHOLESTEROL 28 MG/DL (> 49); IRON BINDING CAPACITY 317 MCG/DL (225-410); IRON, SERUM 15 MCG/DL (35-150); LDL CHOLESTEROL 74 MG/DL (< 130); NON-HDL CHOLESTEROL 85 MG/DL (< 160); POTASSIUM, SERUM 4.4 MMOL/L (3.5-5.3); SODIUM, SERUM 138 MMOL/L (135-148); TRIGLYCERIDE 56 MG/DL (< 150); TROPONIN I <0.02 NG/ML (<0.05)
[2016-09-11 05:54] LABS: GLUCOSE, SERUM 73 MG/DL (60-99)
[2016-09-11 06:24] LABS: SED RATE 95 MM/HR (0-20)
[2016-09-11 13:58] LABS: ALBUMIN 2.2 G/DL (3.5-5.0); ALKALINE PHOSPHATASE 85 U/L (45-117); SGOT(AST) 35 U/L (5-40); SGPT(ALT) 29 U/L (5-65); TOTAL BILIRUBIN 0.3 MG/DL (0-1.2); TOTAL PROTEIN 9.2 G/DL (6.0-8.5)
[2016-09-11 14:01] LABS: DIRECT BILIRUBIN < 0.1 MG/DL (0.0-0.4); FOLATE 47.8 NG/ML (>5.2); INDIRECT BILIRUBIN(NOT ORDER) 0.2 MG/DL (0.1-0.9)
[2016-09-11 14:49] LABS: TROPONIN I <0.02 NG/ML (<0.05)
[2016-09-12 10:24] LABS: TOTAL PROTEIN, CSF 30.5 MG/DL (15-45)
[2016-09-12 10:35] LABS: CSF BASO 0 % (NO REF RANGE); CSF EOS 0 % (0-1); CSF LYMPH (NOT ORD) 90 % (28-96); CSF MONO 3 % (16-56); CSF SEGS (NOT ORD) 8 % (0-7); CSF WBC (NOT ORD) 5 /uL (0-10)
[2016-09-12 10:36] LABS: CSF APPEARANCE (NOT ORD) CLEAR (CLEAR); CSF COLOR (NOT ORD) COLORLESS (COLORLESS); CSF XANTHROCHROMIA NEG (NEG)
[2016-09-12 10:37] LABS: CSF RBC (NOT ORD) 2 MM3 (NO REFERENCE)
[2016-09-12 10:39] LABS: HEPATITIS B SURFACE ANTIGEN NON-REACTIVE (NON-REACT)
[2016-09-12 10:48] LABS: HEPATITIS B CORE AB IGM NON-REACTIVE (NON-REAC); HEPATITIS C ANTIBODY NON-REACTIVE (NON-REACT)
[2016-09-12 10:49] LABS: HIV COMBO NON-REACTIVE (NON REAC)
[2016-09-12 10:50] LABS: HEP A ANTIBODY IGM NON-REACTIVE (NON-REACT)
[2016-09-13 16:19] LABS: ALBUMIN 2.3 G/DL (3.5-5.0); CALCIUM, SERUM 8.1 MG/DL (8.5-10.4); CHLORIDE, SERUM 107 MMOL/L (96-112); CO2 (CARBON DIOXIDE) 25 MMOL/L (24-34); CREATININE 0.59 MG/DL (0.55-1.02); GFR AFRICAN AMERICAN 143 ML/MIN (>=60); GFR NON AFRICAN AMERICAN 123 ML/MIN (>=60); PHOSPHORUS, SERUM 3.5 MG/DL (2.5-4.5); POTASSIUM, SERUM 4.2 MMOL/L (3.5-5.3); SODIUM, SERUM 139 MMOL/L (135-148)
[2016-09-13 16:22] LABS: BUN (BLOOD UREA NITROGEN) 22 MG/DL (6-23); GLUCOSE, SERUM 133 MG/DL (60-99)
[2016-09-15 17:56] LABS: HSV DNA TYPE 1 Not Detected (NOTDET); HSV DNA TYPE 2 Not Detected (NOTDET)
[2016-09-16 04:51] LABS: BASOPHILS 0 %; EOSINOPHILS 0 %; HEMATOCRIT 30.9 % (36.0-48.0); HEMOGLOBIN 9.6 g/dL (12.0-16.0); IMMATURE GRANULOCYTES 0.2 %; IMMATURE GRANULOCYTES ABSOLUTE 0.01 10/3/uL (0.0-0.11); LYMPHOCYTES 15.5 %; LYMPHOCYTES ABSOLUTE 0.91 10/3/uL (0.67-4.30); MANUAL DIFF NO %; MEAN CORPUS HGB CONC 31.1 g/dL (32.0-36.0); MEAN CORPUSCULAR VOLUME 70.7 fL (80-100); MEAN PLATELET VOLUME 9.1 fL (9.2-13.0); MONOCYTES 3.1 %; MONOCYTES ABSOLUTE 0.18 10/3/uL (0.21-1.20); NEUTROPHILS 81.2 %; NEUTROPHILS ABSOLUTE 4.77 10/3/uL (2.02-8.40); PLATELET COUNT 319 10/3/uL (150-400); RED CELL COUNT 4.37 10/6/uL (4.0-5.6); WHITE BLOOD CELLS 5.9 10/3/uL (4.5-10.5)
[2016-09-16 05:03] LABS: BUN (BLOOD UREA NITROGEN) 20 MG/DL (6-23); CHLORIDE, SERUM 110 MMOL/L (96-112); CO2 (CARBON DIOXIDE) 20 MMOL/L (24-34); CREATININE 0.65 MG/DL (0.55-1.02); GFR AFRICAN AMERICAN 138 ML/MIN (>=60); GFR NON AFRICAN AMERICAN 119 ML/MIN (>=60); GLUCOSE, SERUM 181 MG/DL (60-99); POTASSIUM, SERUM 3.3 MMOL/L (3.5-5.3); SODIUM, SERUM 136 MMOL/L (135-148)
[2016-09-16 12:28] LABS: ALBUMIN 2.3 G/DL (3.5-5.0); ALKALINE PHOSPHATASE 90 U/L (45-117); SGOT(AST) 18 U/L (5-40); SGPT(ALT) 20 U/L (5-65); TOTAL BILIRUBIN 0.2 MG/DL (0-1.2); TOTAL PROTEIN 8.3 G/DL (6.0-8.5)
[2016-09-16 12:30] LABS: DIRECT BILIRUBIN 0.1 MG/DL (0.0-0.4); INDIRECT BILIRUBIN(NOT ORDER) 0.1 MG/DL (0.1-0.9)
[2016-09-17 05:27] LABS: BASOPHILS 0.1 %; BASOPHILS ABSOLUTE 0.01 10/3/uL (0.0-0.16); EOSINOPHILS 0.1 %; EOSINOPHILS ABSOLUTE 0.01 10/3/uL (0.0-0.53); HEMATOCRIT 31.7 % (36.0-48.0); HEMOGLOBIN 9.8 g/dL (12.0-16.0); IMMATURE GRANULOCYTES 0.3 %; IMMATURE GRANULOCYTES ABSOLUTE 0.02 10/3/uL (0.0-0.11); LYMPHOCYTES 29.8 %; MEAN CORPUS HGB CONC 30.9 g/dL (32.0-36.0); MEAN CORPUSCULAR VOLUME 71.1 fL (80-100); MEAN PLATELET VOLUME 9.5 fL (9.2-13.0); MONOCYTES ABSOLUTE 0.62 10/3/uL (0.21-1.20); NEUTROPHILS 61.7 %; NEUTROPHILS ABSOLUTE 4.75 10/3/uL (2.02-8.40); PLATELET COUNT 395 10/3/uL (150-400); RBC DISTRIBUTION WIDTH 17.2 % (12.0-16.0); RED CELL COUNT 4.46 10/6/uL (4.0-5.6); WHITE BLOOD CELLS 7.7 10/3/uL (4.5-10.5)
[2016-09-17 05:28] LABS: MANUAL DIFF NO %
[2016-09-17 05:35] LABS: A/G RATIO 0.4 (0.7-1.9); ALBUMIN 2.1 G/DL (3.5-5.0); ALKALINE PHOSPHATASE 92 U/L (45-117); BUN (BLOOD UREA NITROGEN) 33 MG/DL (6-23); CALCIUM, SERUM 7.9 MG/DL (8.5-10.4); CHLORIDE, SERUM 114 MMOL/L (96-112); CO2 (CARBON DIOXIDE) 23 MMOL/L (24-34); CREATININE 0.63 MG/DL (0.55-1.02); GFR AFRICAN AMERICAN 140 ML/MIN (>=60); GFR NON AFRICAN AMERICAN 120 ML/MIN (>=60); GLOBULIN 5.5 G/DL (2.5-4.1); GLUCOSE, SERUM 90 MG/DL (60-99); POTASSIUM, SERUM 3.8 MMOL/L (3.5-5.3); SGOT(AST) 13 U/L (5-40); SGPT(ALT) 16 U/L (5-65); SODIUM, SERUM 144 MMOL/L (135-148); TOTAL BILIRUBIN 0.6 MG/DL (0-1.2); TOTAL PROTEIN 7.6 G/DL (6.0-8.5)
[2016-09-17 06:06] LABS: ANISOCYTOSIS 1+ (5-10/OIF) (0-5/OIF); PLATELET ESTIMATE ADQ (ADEQUATE)
[2016-09-17 06:07] LABS: ELLIPTOCYTES 1+ (3-10/OIF) (0-2/OIF)
[2016-09-18 05:11] LABS: BASOPHILS 0 %; EOSINOPHILS 2.8 %; EOSINOPHILS ABSOLUTE 0.19 10/3/uL (0.0-0.53); HEMATOCRIT 31.7 % (36.0-48.0); HEMOGLOBIN 9.7 g/dL (12.0-16.0); IMMATURE GRANULOCYTES 0.3 %; IMMATURE GRANULOCYTES ABSOLUTE 0.02 10/3/uL (0.0-0.11); LYMPHOCYTES 27.8 %; LYMPHOCYTES ABSOLUTE 1.86 10/3/uL (0.67-4.30); MEAN CORPUS HGB CONC 30.6 g/dL (32.0-36.0); MEAN CORPUSCULAR HEMOGLOB 21.7 pg (26.0-34.0); MEAN CORPUSCULAR VOLUME 70.9 fL (80-100); MEAN PLATELET VOLUME 9.9 fL (9.2-13.0); MONOCYTES 8.8 %; MONOCYTES ABSOLUTE 0.59 10/3/uL (0.21-1.20); NEUTROPHILS 60.3 %; NEUTROPHILS ABSOLUTE 4.03 10/3/uL (2.02-8.40); PLATELET COUNT 405 10/3/uL (150-400); RBC DISTRIBUTION WIDTH 17.4 % (12.0-16.0); RED CELL COUNT 4.47 10/6/uL (4.0-5.6); WHITE BLOOD CELLS 6.7 10/3/uL (4.5-10.5)
[2016-09-18 05:13] LABS: MANUAL DIFF NO %
[2016-09-18 05:23] LABS: BUN (BLOOD UREA NITROGEN) 35 MG/DL (6-23); CALCIUM, SERUM 7.8 MG/DL (8.5-10.4); CHLORIDE, SERUM 112 MMOL/L (96-112); CO2 (CARBON DIOXIDE) 22 MMOL/L (24-34); CREATININE 0.63 MG/DL (0.55-1.02); GFR AFRICAN AMERICAN 140 ML/MIN (>=60); GFR NON AFRICAN AMERICAN 120 ML/MIN (>=60); GLUCOSE, SERUM 97 MG/DL (60-99); POTASSIUM, SERUM 3.5 MMOL/L (3.5-5.3); SODIUM, SERUM 143 MMOL/L (135-148)
[2016-09-18 05:51] LABS: PLATELET ESTIMATE ADQ (ADEQUATE)
[2016-09-18 05:52] LABS: SCHISTOCYTES OCC (0-2/OIF)
[2016-09-18 14:57] LABS: ASCORBIC ACID (UR NOT ORDER) NEG (NEG); BILIRUBIN, URINE NEGATIVE (NEG); KETONE, URINE NEGATIVE (NEG); LEUKOCYTE ESTERASE(NOT OR NEG (NEG); WBC (NOT ORDERED) (RFLEX) 3 (0-5)
[2016-09-20 04:44] LABS: BASOPHILS 0.2 %; BASOPHILS ABSOLUTE 0.01 10/3/uL (0.0-0.16); EOSINOPHILS 5.9 %; EOSINOPHILS ABSOLUTE 0.31 10/3/uL (0.0-0.53); HEMATOCRIT 30.5 % (36.0-48.0); HEMOGLOBIN 9.6 g/dL (12.0-16.0); IMMATURE GRANULOCYTES 0.4 %; IMMATURE GRANULOCYTES ABSOLUTE 0.02 10/3/uL (0.0-0.11); LYMPHOCYTES 31.6 %; LYMPHOCYTES ABSOLUTE 1.65 10/3/uL (0.67-4.30); MEAN CORPUS HGB CONC 31.5 g/dL (32.0-36.0); MEAN CORPUSCULAR HEMOGLOB 21.8 pg (26.0-34.0); MEAN CORPUSCULAR VOLUME 69.2 fL (80-100); MEAN PLATELET VOLUME 9.4 fL (9.2-13.0); MONOCYTES 9.6 %; NEUTROPHILS 52.3 %; NEUTROPHILS ABSOLUTE 2.73 10/3/uL (2.02-8.40); PLATELET COUNT 318 10/3/uL (150-400); RBC DISTRIBUTION WIDTH 17.6 % (12.0-16.0); RED CELL COUNT 4.41 10/6/uL (4.0-5.6); WHITE BLOOD CELLS 5.2 10/3/uL (4.5-10.5)
[2016-09-20 04:46] LABS: MANUAL DIFF NO %
[2016-09-20 04:47] LABS: CALCIUM, SERUM 7.6 MG/DL (8.5-10.4); CHLORIDE, SERUM 109 MMOL/L (96-112); CO2 (CARBON DIOXIDE) 23 MMOL/L (24-34); GFR AFRICAN AMERICAN 151 ML/MIN (>=60); GFR NON AFRICAN AMERICAN 130 ML/MIN (>=60); GLUCOSE, SERUM 80 MG/DL (60-99); SODIUM, SERUM 139 MMOL/L (135-148)
[2016-09-20 04:48] LABS: BUN (BLOOD UREA NITROGEN) 18 MG/DL (6-23)
[2016-09-20 06:54] LABS: ANISOCYTOSIS 1+ (5-10/OIF) (0-5/OIF); PLATELET ESTIMATE ADQ (ADEQUATE)
[2016-09-20] MEDS ORDERED: NXL3 PO (12:26)
[2016-09-20] MEDS ORDERED: MULTI VITAMIN PO (12:42)
[2016-09-20] MEDS ORDERED: LIPITOR40 PO (13:02)
[2016-09-20] MEDS ORDERED: FOLIC PO (13:03)
[2016-09-20] MEDS ORDERED: IBU400 PO (13:04)
[2016-09-20] MEDS ORDERED: REM15 PO (13:05)
[2016-09-20] MEDS ORDERED: NORCO1 TA1 PO (13:43)
[2016-09-20] MEDS ORDERED: ZOFRAN8 PO (14:39)
== END 2016-09-20 15:38 | disposition home or self-care (01) | DRG 546 ==
LOC: ER 10:40 → CDU1 19:15 → CDU2 19:29 → 6NO 09-13 10:52
PROVIDERS: Hospitalist; Internal Medicine; Nurse Practitioner
PROC: B2111ZZ Fluoroscopy of Multiple Coronary Arteries using Low Osmolar Contrast (ICD-10-PCS; 2016-09-11)
PROC: B2151ZZ Fluoroscopy of Left Heart using Low Osmolar Contrast (ICD-10-PCS; 2016-09-11)
PROC: 009U3ZX Drainage of Spinal Canal, Percutaneous Approach, Diagnostic (ICD-10-PCS; principal; 2016-09-12)
PROC: B01B1ZZ Fluoroscopy of Spinal Cord using Low Osmolar Contrast (ICD-10-PCS; 2016-09-12)
PROC: 4A023N8 Measurement of Cardiac Sampling and Pressure, Bilateral, Percutaneous Approach (ICD-10-PCS; 2016-09-12)
DX: M32.13 Lung involvement in systemic lupus erythematosus (principal); I27.0 Primary pulmonary hypertension; I31.3 Pericardial effusion (noninflammatory); E83.42 Hypomagnesemia; M34.9 Systemic sclerosis, unspecified; R07.9 Chest pain, unspecified; R51 Headache; G89.29 Other chronic pain; E87.6 Hypokalemia; M06.9 Rheumatoid arthritis, unspecified; K21.9 Gastro-esophageal reflux disease without esophagitis; D50.9 Iron deficiency anemia, unspecified; D63.8 Anemia in other chronic diseases classified elsewhere; F32.9 Major depressive disorder, single episode, unspecified; Z87.01 Personal history of pneumonia (recurrent); R19.7 Diarrhea, unspecified
CPT/HCPCS: 62270; 70496; 70498; 70544; 70553; 71010; 71275; 74177; 77003; 80048; 80053; 80061; 80069; 80074; 80076; 81001; 82140; 82150; 82164; 82607; 82652; 82728; 82746; 82803; 82945; 82962; 83036; 83540; 83550; 83690; 83735; 84157; 84443; 84484; 84703; 85025; 85610; 85652; 85730; 86140; 86592; 87015; 87045; 87046; 87046-59; 87070; 87102; 87116; 87205; 87210; 87327; 87328; 87329; 87389; 87493; 87493-59; 87529; 87529-59; 87899; 87899-59; 88112; 89051; 89055; 93005; 93306; 93460; 96374; 96375; 96376; 99152; 99153; 99285; A9270-GY; A9577; C1769; C1887; C1894; J0780; J1170; J1200; J1885; J2250; J2405; J2765; J2930; J3010; J3475; J7500; Q9967